=== PATIENT | male | born 1950 | race Caucasian/White ===

== ENCOUNTER → 2016-10-15 | Outpatient (CLI) | payer OTHER ==
--- NOTE | 2016-10-15 17:31 | US ---
Thyroid Ultrasound INDICATION: Thyroid nodule on recent physical exam. TECHNIQUE: Complete rodriguez-scale thyroid ultrasound is performed. No priors for comparison. CT scan of the chest September 18, 2015. FINDINGS The right thyroid gland measures 1.3 x 1.2 x 4.6 cm. There is a dominant superior or upper pole hypo echoic nodule of 9.4 x 10.5 x 12.1 mm, with increased vascularity compared to the rest of the thyroid gland. No calcifications. It is heterogeneous. The left thyroid gland measures 1.5 x 1.6 x 5.2 cm. It is otherwise basically homogeneous, with the exception of a small superior pole cyst at 2.6 x 2 x 2.1 mm. The cyst is avascular. The thyroid isthmus is normal at 5 mm. IMPRESSION: Single dominant complex/solid hypervascular nodule in the superior aspect of the right t hyroid gland, without calcifications. This is a nonspecific thyroid nodule. E:Diony/david
== END ==
LOC: FIMAGING 12:29
PROVIDERS: ATTEND Internal Medicine
DX: E04.1 Nontoxic single thyroid nodule (principal)

== ENCOUNTER 2017-12-11 09:30 | Inpatient (IN) | payer OTHER ==
[2017-12-11] MEDS ORDERED: VANCOMYCIN HCL/NORMAL SALINE 250 ML IV ONE (09:53)
--- NOTE | 2017-12-11 10:07 | EDPHY ---
H & P Stated Complaint: cellulitis l hand/had sliver 4th digit 2 weeks ago Time Seen by Provider: 12/11/17 09:43 HPI/ROS: CHIEF COMPLAINT: "I think my hand is infected" HISTORY OF PRESENT ILLNESS: 67-year-old [id number] male, history of atrial fibrillation, states that 2 weeks ago he had a splinter in his left 4th digit distal phalanx which he take that. He has noticed progressive erythema and soft tissue swelling to that left hand and, specifically the left 4th digit. He notes decreased range of motion to the left 4th digit. No fever no chills. No chest pain. No dyspnea. No flu-like symptoms. PRIMARY CARE PROVIDER: Dr. Shayne Fields REVIEW OF SYSTEMS: A ten point review of systems was performed and is negative with the exception of the items mentioned in the HPI PAST MEDICAL & SURGICAL HISTORY: Atrial fibrillation. Anticoagulation with Plavix and Xarelto. SOCIAL HISTORY: Nonsmoker PHYSICAL EXAM (Prior to examination, patient consented to physical exam, hands were washed and my usual and customary physical exam procedures followed) 1) GENERAL: Well-developed, well-nourished, alert and oriented. Appears to be in no acute distress. 2) HEAD: Normocephalic, atraumatic 3) HEENT: Pupils equal, round, reactive to light bilaterally. Sclera anicteric. 4) NECK: Full range of motion, no meningeal signs. 5) LUNGS: Clear auscultation bilaterally, no wheezes, no rhonchi, no retractions. 6) HEART: Regular rate and rhythm, no murmur, no heave, no gallop. 7) ABDOMEN: No guarding, no rebound, no focal tenderness 8) MUSCULOSKELETAL: Left upper extremity: Positive kanavel sign left 4th digit. Dorsal soft tissue swelling to the left hand. Lymphangitic streaking extending to the left axilla. 9) BACK: No visual or palpable abnormality. 10) SKIN: No rash, no petechiae. 11) Psychiatric: Patient is oriented X 3, there is no agitation. DIFFERENTIAL DIAGNOSIS: In no particular include but limited to infectious tenosynovitis, cellulitis, abscess. - Personal History Current Tetanus/Diphtheria Vaccine: Yes Tetanus Vaccine Date: 02/2012 - Medical/Surgical History Hx Asthma: No Hx Chronic Respiratory Disease: No Hx Diabetes: No Hx Cardiac Disease: Yes Hx Renal Disease: No Hx Cirrhosis: No Hx Alcoholism: No Hx HIV/AIDS: No Hx Splenectomy or Spleen Trauma: No Other PMH: HTN, A-fib, stent, cardioversion - Social History Smoking Status: Never smoked Constitutional: Initial Vital Signs Temperature (C) 37.5 C 12/11/17 09:34 Heart Rate 83 12/11/17 09:34 Respiratory Rate 18 12/11/17 09:34 Blood Pressure 149/74 H 12/11/17 09:34 O2 Sat (%) 95 12/11/17 09:34 O2 Delivery Mode Room Air Allergies/Adverse Reactions: Penicillins Allergy (Intermediate, Verified 12/11/17 09:33) hives/swelling Home Medications: Medication Instructions Recorded Enalapril Maleate [Vasotec 10 MG 5 mg PO BID 12/13/13 (*)] Melatonin [Melatonin 3 MG (*)] 3 mg PO HS 12/13/13 Multivitamins [Multivitamin (*)] 1 tab PO HS 12/13/13 Rivaroxaban [Xarelto] 20 mg PO DAILY@1800 12/13/13 Vitamin B Complex [B Complex] 1 each PO DAILY 12/13/13 Clopidogrel Bisulfate [Clopidogrel] 75 mg PO DAILY 07/09/14 Herbals/Supplements -Info Only 1 ea PO DAILY 07/09/14 Psyllium Husk (with Sugar) 1 each PO HS 07/09/14 [Metamucil Packet] Dofetilide [Tikosyn 0.25 MG (*)] 0.25 mg PO BID #0 cap 07/11/14 Atorvastatin Calcium [Lipitor 40 40 mg PO DAILY 12/11/17 mg (*)] Cholecalciferol Vit D3 [Vitamin D3 2,000 units PO HS 12/11/17 2000 units tab (OTC)] amLODIPine BESYLATE [Norvasc 5 mg 5 mg PO DAILY 12/11/17 (*)] Medical Decision Making - Diagnostics Imaging Results: Imaging Impressions Hand X-Ray 12/11/17 09:53 Impression: Soft tissue swelling in the dorsal aspect of the left hand without evidence for radiopaque foreign body or osseous erosion. Degenerative change, as above. Chest X-Ray 12/11/17 10:11 Impression: 1. Mild cardiomegaly. 2. Bochdalek hernia posterior left hemidiaphragm. Images myself ED Course/Re-evaluation: 10:01 a.m.: This patient will necessitate admission to the hospital consultation with Hand surgery. Patient has positive kanavel sign of the left 4th digit, lymphangitic streaking to his axilla on the affected side. Discussed the case with secondary supervising physician Dr. Salvatore Watts. On- call hand surgeon Dr. Wilfrid Kaufman has been contacted. 10:07 a.m.: Consultation with Dr. Wilfrid Kaufman who reviewed the patient's images that I texted to him (with no patient identifying information). He would like to take the patient to the operating room this afternoon. Patient remains NPO since lunch yesterday. He will remain NPO. Started on vancomycin. 10:08 a.m.: Dr. Salvatore Watts spoke with the hospitalist, admit to Dr. Curran. Patient does not meet initial sepsis screening criteria. - Data Points Laboratory Results: Laboratory Results 12/11/17 10:06 12/11/17 10:06 12/11/17 12/11/17 12/11/17 11:14 10:06 10:06 WBC 31.20 10^3/uL H 10^3/uL (3.80-9.50) RBC 4.94 10^6/uL 10^6/uL (4.40-6.38) Hgb 15.6 g/dL g/dL (13.7-17.5) Hct 45.6 % % (40.0-51.0) MCV 92.3 fL fL (81.5-99.8) MCH 31.6 pg pg (27.9-34.1) MCHC 34.2 g/dL g/dL (32.4-36.7) RDW 12.7 % % (11.5-15.2) Plt Count 240 10^3/uL 10^3/uL (150-400) MPV 9.4 fL fL (8.7-11.7) Neut % (Auto) Not Reported Lymph % (Auto) Not Reported [place] % (Auto) Not Reported Eos % (Auto) Not Reported Baso % (Auto) Not Reported Nucleat RBC Rel Count 0.0 % % (0.0-0.2) Absolute Neuts (auto) Not Reported Absolute Lymphs (auto) Not Reported Absolute Monos (auto) Not Reported Absolute Eos (auto) Not Reported Absolute Basos (auto) Not Reported Absolute Nucleated RBC 0.00 10^3/uL 10^3/uL (0-0.01) Immature Gran % Not Reported Seg Neutrophils % 66 % % Band Neutrophils % 23 % % Lymphocytes % 3 % % Monocytes % 2 % % Metamyelocytes % 7 % % Myelocytes % 1 % % Immature Gran # Not Reported Absolute Seg Neuts 20.59 10^/uL H 10^/uL (1.70-6.50) Absolute Band Neuts 7.18 10^3/uL H 10^3/uL (0.00-0.70) Absolute Lymphocytes 0.94 10^3/uL L 10^3/uL (1.00-3.00) Absolute Monocytes 0.62 10^3/uL 10^3/uL (0.30-0.80) Absolute Metamyelocyte 2.18 10^3/mL H 10^3/mL (0.00-0.00) Absolute Myelocytes 0.31 10^3/mL H 10^3/mL (0.00-0.00) Differential Comment Platelet Estimate ADEQUATE (ADEQ) Smear Review By Pending PT 19.1 SEC H SEC (12.0-15.0) INR 1.59 H (0.83-1.16) APTT 41.7 SEC H SEC (23.0-38.0) VBG Lactic Acid 1.9 mmol/L mmol/L (0.7-2.1) Sodium Potassium Chloride Carbon Dioxide Anion Gap BUN Creatinine Estimated GFR Glucose Calcium Total Bilirubin 12/11/17 12/11/17 10:06 10:06 WBC RBC Hgb Hct MCV MCH MCHC RDW Plt Count MPV Neut % (Auto) Lymph % (Auto) [place] % (Auto) Eos % (Auto) Baso % (Auto) Nucleat RBC Rel Count Absolute Neuts (auto) Absolute Lymphs (auto) Absolute Monos (auto) Absolute Eos (auto) Absolute Basos (auto) Absolute Nucleated RBC Immature Gran % Seg Neutrophils % Band Neutrophils % Lymphocytes % Monocytes % Metamyelocytes % Myelocytes % Immature Gran # Absolute Seg Neuts Absolute Band Neuts Absolute Lymphocytes Absolute Monocytes Absolute Metamyelocyte Absolute Myelocytes Differential Comment Platelet Estimate Smear Review By PT INR APTT VBG Lactic Acid 2.6 mmol/L H mmol/L (0.7-2.1) Sodium 137 mEq/L mEq/L (135-145) Potassium 4.8 mEq/L mEq/L (3.5-5.2) Chloride 100 mEq/L mEq/L (97-110) Carbon Dioxide 22 mEq/l mEq/l (22-31) Anion Gap 15 mEq/L mEq/L (8-16) BUN 25 mg/dL H mg/dL (7-23) Creatinine 1.2 mg/dL mg/dL (0.7-1.3) Estimated GFR > 60 Glucose 141 mg/dL H mg/dL (70-100) Calcium 8.6 mg/dL mg/dL (8.5-10.4) Total Bilirubin 1.5 mg/dL H mg/dL (0.1-1.4) Medications Given: Discontinued Medications Bacitracin (Bacitracin Syringe) Confirm Administered Dose 50,000 units IRR .STK- MED ONE Stop: 12/11/17 10:56 Last Admin: 12/11/17 12:36 Dose: 50,000 units Bupivacaine HCl (Sensorcaine 0.25% Sdv) Confirm Administered Dose 30 ml .ROUTE .STK-MED ONE Stop: 12/11/17 10:55 Last Admin: 12/11/17 12:37 Dose: 30 ml Bupivacaine HCl/Epinephrine Bitart (Bupivacaine/Epi) Confirm Administered Dose 30 ml .ROUTE .STK-MED ONE Stop: 12/11/17 10:52 Last Admin: 12/11/17 12:40 Dose: Not Given Vancomycin/Sodium Chloride (Vancomycin 1 Gm (Premix)) 250 mls @ 250 mls/hr IV EDNOW ONE PRN Reason: Protocol Stop: 12/11/17 10:52 Last Admin: 12/11/17 10:40 Dose: Not Given Sodium Chloride (Ns) 1,000 mls @ 0 mls/hr IV ONCE ONE PRN Reason: Wide Open Stop: 12/11/17 10:20 Last Admin: 12/11/17 10:24 Dose: 1,000 mls Vancomycin HCl 1 gm/ Sodium (Chloride) 250 mls @ 250 mls/hr IV ONCE ONE Stop: 12/11/17 11:29 Last Admin: 12/11/17 10:41 Dose: 250 mls Sodium Chloride (Ns) 1,000 mls @ 0 mls/hr IV ONCE ONE PRN Reason: Wide Open Stop: 12/11/17 11:04 Last Admin: 12/11/17 11:05 Dose: 1,000 mls Midazolam HCl (Versed) 2 mg IVP ONCALL ONE Stop: 12/11/17 11:54 Last Admin: 12/11/17 12:08 Dose: 2 mg Departure - Departure Disposition: [facility] Acute Clinical Impression: Infectious tenosynovitis left hand Condition: Fair
[2017-12-11 10:15] LABS: PLATELET COUNT 240 10^3/uL (150-400)
[2017-12-11] MEDS ORDERED: NS 1,000 ML IV ONE ×2 (10:19→11:03)
--- NOTE | 2017-12-11 10:21 | CPEKG ---
Heart Rate: 80 RR Interval: 750 P-R Interval: 172 QRSD Interval: 94 QT Interval: 340 QTC Interval: 393 P Byron: 20 QRS Byron: -32 T Wave Byron: 15 EKG Severity - ABNORMAL ECG - EKG Impression: SINUS RHYTHM EKG Impression: PROBABLE INFERIOR INFARCT, AGE INDETERMINATE Electronically Signed By: Salvatore Watts 11-Dec-2017 12:17:24
[2017-12-11 10:30] LABS: INR 1.59 (0.83-1.16); PROTIME(PATIENT) 19.1 SEC (12.0-15.0)
[2017-12-11] MEDS ORDERED: VANCOMYCIN 1 GM in NS 250 ML IV ONE (10:30)
[2017-12-11] MEDS ORDERED: BUPIVACAINE/EPI 0.5% 30 ML SDV ONE (10:51)
[2017-12-11] MEDS ORDERED: BUPIVACAINE 0.25% 30 ML SDV ONE (10:54)
[2017-12-11] MEDS ORDERED: BACITRACIN 50,000 UNITS/10 ML SYR IRR ONE (10:55)
[2017-12-11] MEDS ORDERED: ONDANSETRON DISINTEGRATING 4 MG TAB PO PRN (11:21)
[2017-12-11] MEDS ORDERED: ALBUTEROL 3 ML DEYVIAL IH PRN (11:21)
[2017-12-11] MEDS ORDERED: ONDANSETRON 4 MG/2 ML VIAL IVP PRN ×2 (11:21→12:59)
[2017-12-11] MEDS ORDERED: oxyCODONE IR 5 MG TAB PO PRN (11:21)
[2017-12-11] MEDS ORDERED: NS 1,000 ML IV SCH (11:30)
--- NOTE | 2017-12-11 11:31 | PDGENHP ---
History and Physical - Chief Complaint left hand swelling - History of Present Illness 67 yo male p/w left hand swelling and redness. 2 weeks ago he got a splinter to his 4th distal phalanx. Over the past couple of days he has noticed erythema and swelling of finger. Yesterday night it became worse. He had chills and may have had a fever. He went to sleep. This morning the erythema and swelling had extended to all his left hand. He has a hx of Afib, chronic AC, CAD, and possible CHF. He is on Plavix and Xarelto. He is not on a rate limiting agent. He reports that his legs swell often and that he takes Lasix, but this is not on his medication list. Leading up to this event he had been in his usual health. He denies CP, SOB, N/V/D. In the E.D., hand surgery was consulted. He had an elevated lactic acid. BP is normal. HR is not tachycardia. WBC is elevated. He is not noted to have a fever in the E.D. He was started on IVF and started on Vancomycin. He is NPO. PMHx: Afib, CAD, chronic Anticoagulation for Afib, HTN, HLD PSHx: Cardioversion, Left testicle surgery, Hernia repair Soc: , no t/e/i fmHx: Cardiovascular disease, HTN History Information - Allergies/Home Medication List Allergies/Adverse Reactions: Penicillins Allergy (Intermediate, Verified 12/11/17 09:33) hives/swelling Home Medications: Enalapril Maleate [Vasotec 10 MG (*)] 5 mg PO BID 12/13/13 [Last Taken 07/09/14] Melatonin [Melatonin 3 MG (*)] 3 mg PO HS 12/13/13 [Last Taken 07/08/14] Multivitamins [Multivitamin (*)] 1 tab PO HS 12/13/13 [Last Taken 07/08/14] Rivaroxaban [Xarelto] 20 mg PO DAILY@1800 12/13/13 [Last Taken 12/10/17] Vitamin B Complex [B Complex] 1 each PO DAILY 12/13/13 [Last Taken 12/13/13] Clopidogrel Bisulfate [Clopidogrel] 75 mg PO DAILY 07/09/14 [Last Taken 12/10/17 ] Herbals/Supplements -Info Only 1 ea PO DAILY 07/09/14 [Last Taken Unknown] Psyllium Husk (with Sugar) [Metamucil Packet] 1 each PO HS 07/09/14 [Last Taken 07/08/14] Atorvastatin Calcium [Lipitor 40 mg (*)] 40 mg PO DAILY 12/11/17 [Last Taken ] Cholecalciferol Vit D3 [Vitamin D3 2000 units tab (OTC)] 2,000 units PO HS 12/11 [Last Taken Unknown] amLODIPine BESYLATE [Norvasc 5 mg (*)] 5 mg PO DAILY 12/11/17 [Last Taken ] I have personally reviewed and updated: medical history, social history - Social History Smoking Status: Never smoked Review of Systems Review of Systems: ROS: 10pt was reviewed & negative except for what was stated in HPI & below Physical Exam Physical Exam: Temp Pulse Resp BP Pulse Ox 37.5 C 87 18 141/84 H 95 12/11/17 09:34 12/11/17 11:22 12/11/17 11:22 12/11/17 11:22 12/11/17 11:22 Constitutional: no apparent distress Eyes: PERRL, EOMI Ears, Nose, Mouth, Throat: moist mucous membranes Cardiovascular: regular rate and rhythym, edema (trace), No JVD Respiratory: no respiratory distress, no rales or rhonchi, clear to auscultation Gastrointestinal: normoactive bowel sounds, soft, non-tender abdomen Genitourinary: no bladder fullness Skin: warm Musculoskeletal: other (Left hand with erythema, swelling, limited ROM.) Neurologic: AAOx3 Psychiatric: interacting appropriately, not anxious, not encephalopathic, thought process linear Lymph, Heme, Immunologic: No petechiae Lab Data & Imaging Review 12/11/17 10:06 12/11/17 10:06 WBC 31.20 10^3/uL (3.80-9.50) H 12/11/17 10:06 RBC 4.94 10^6/uL (4.40-6.38) 12/11/17 10:06 Hgb 15.6 g/dL (13.7-17.5) 12/11/17 10:06 Hct 45.6 % (40.0-51.0) 12/11/17 10:06 MCV 92.3 fL (81.5-99.8) 12/11/17 10:06 MCH 31.6 pg (27.9-34.1) 12/11/17 10:06 MCHC 34.2 g/dL (32.4-36.7) 12/11/17 10:06 RDW 12.7 % (11.5-15.2) 12/11/17 10:06 Plt Count 240 10^3/uL (150-400) 12/11/17 10:06 MPV 9.4 fL (8.7-11.7) 12/11/17 10:06 Neut % (Auto) Not Reported 12/11/17 10:06 Lymph % (Auto) Not Reported 12/11/17 10:06 [place] % (Auto) Not Reported 12/11/17 10:06 Eos % (Auto) Not Reported 12/11/17 10:06 Baso % (Auto) Not Reported 12/11/17 10:06 Nucleat RBC Rel Count 0.0 % (0.0-0.2) 12/11/17 10:06 Absolute Neuts (auto) Not Reported 12/11/17 10:06 Absolute Lymphs (auto) Not Reported 12/11/17 10:06 Absolute Monos (auto) Not Reported 12/11/17 10:06 Absolute Eos (auto) Not Reported 12/11/17 10:06 Absolute Basos (auto) Not Reported 12/11/17 10:06 Absolute Nucleated RBC 0.00 10^3/uL (0-0.01) 12/11/17 10:06 Immature Gran % Not Reported 12/11/17 10:06 Seg Neutrophils % 66 % 12/11/17 10:06 Band Neutrophils % 23 % 12/11/17 10:06 Lymphocytes % 3 % 12/11/17 10:06 Monocytes % 2 % 12/11/17 10:06 Metamyelocytes % 7 % 12/11/17 10:06 Myelocytes % 1 % 12/11/17 10:06 Immature Gran # Not Reported 12/11/17 10:06 Absolute Seg Neuts 20.59 10^/uL (1.70-6.50) H 12/11/17 10:06 Absolute Band Neuts 7.18 10^3/uL (0.00-0.70) H 12/11/17 10:06 Absolute Lymphocytes 0.94 10^3/uL (1.00-3.00) L 12/11/17 10:06 Absolute Monocytes 0.62 10^3/uL (0.30-0.80) 12/11/17 10:06 Absolute Metamyelocyte 2.18 10^3/mL (0.00-0.00) H 12/11/17 10:06 Absolute Myelocytes 0.31 10^3/mL (0.00-0.00) H 12/11/17 10:06 Differential Comment 12/11/17 10:06 Platelet Estimate ADEQUATE (ADEQ) 12/11/17 10:06 PT 19.1 SEC (12.0-15.0) H 12/11/17 10:06 INR 1.59 (0.83-1.16) H 12/11/17 10:06 APTT 41.7 SEC (23.0-38.0) H 12/11/17 10:06 VBG Lactic Acid 2.6 mmol/L (0.7-2.1) H 12/11/17 10:06 Sodium 137 mEq/L (135-145) 12/11/17 10:06 Potassium 4.8 mEq/L (3.5-5.2) 12/11/17 10:06 Chloride 100 mEq/L (97-110) 12/11/17 10:06 Carbon Dioxide 22 mEq/l (22-31) 12/11/17 10:06 Anion Gap 15 mEq/L (8-16) 12/11/17 10:06 BUN 25 mg/dL (7-23) H 12/11/17 10:06 Creatinine 1.2 mg/dL (0.7-1.3) 12/11/17 10:06 Estimated GFR > 60 12/11/17 10:06 Glucose 141 mg/dL (70-100) H 12/11/17 10:06 Calcium 8.6 mg/dL (8.5-10.4) 12/11/17 10:06 Total Bilirubin 1.5 mg/dL (0.1-1.4) H 12/11/17 10:06 Assessment & Plan Assessment: #Left Hand Tenosynovitis and Cellulitis #Possible Sepsis given reported chills/malaise, Leukocytosis, source of infection, elevated serum lactate. Normal BP, HR, and RR noted #Afib, chronic, on Tikasyn #chronic AC #CAD, hx of stents #possible CHF, the pt denies hx of CHF, but he says he takes Lasix for pedal edema Plan: -OR today -Cont Vancomycin -Cont IVF that were started in the E.D. I will not continue typical sepsis IVF protocol given signs of pedal edema, hx of AFib, and BP is stable, and no tachycardia (he is not on rate limiting agent). He is receiving a 1 L bolus in the ED. After surgery he should continue NS at 75 per hour. -Hold Plavix and Xarelto -Hold antihypertensives -restart other appropriate home meds -monitor fluid status closely. total critical care time managing this patient with possible sepsis and left hand tenosynovitis and cellulitis is 65 minutes
[2017-12-11] MEDS ORDERED: fentaNYL 100 MCG/2 ML INJ ONE ×2 (11:43→12:31)
[2017-12-11] MEDS ORDERED: PROPOFOL 200 MG/20 ML VIAL ONE (11:43)
[2017-12-11] MEDS ORDERED: LIDOCAINE 2% 100 MG/5 ML SYR ONE (11:44)
--- NOTE | 2017-12-11 11:52 | PDANEPAE ---
ANE History of Present Illness infected L Hand--I+D ANE Past Medical History - Cardiovascular History Hx Hypertension: Yes Hx Arrhythmias: Yes Hx Coronary Artery / Peripheral Vascular Disease: Yes Cardiovascular History Comment: AFib. CAD, stents x3 2014 - Pulmonary History Hx Oxygen in Use at Home: No Hx Sleep Apnea: No - Endocrine History Hx Diabetes: No - Chronic Pain History Chronic Pain: No ANE Review of Systems Review of Systems: - Exercise capacity Exercise capacity: >=4 METS ANE Patient History - Allergies Allergies/Adverse Reactions: Penicillins Allergy (Intermediate, Verified 12/11/17 09:33) hives/swelling - Home Medications Home Medications: Enalapril Maleate [Vasotec 10 MG (*)] 5 mg PO BID 12/13/13 [Last Taken 07/09/14] Melatonin [Melatonin 3 MG (*)] 3 mg PO HS 12/13/13 [Last Taken 07/08/14] Multivitamins [Multivitamin (*)] 1 tab PO HS 12/13/13 [Last Taken 07/08/14] Rivaroxaban [Xarelto] 20 mg PO DAILY@1800 12/13/13 [Last Taken 12/10/17] Vitamin B Complex [B Complex] 1 each PO DAILY 12/13/13 [Last Taken 12/13/13] Clopidogrel Bisulfate [Clopidogrel] 75 mg PO DAILY 07/09/14 [Last Taken 12/10/17 ] Herbals/Supplements -Info Only 1 ea PO DAILY 07/09/14 [Last Taken Unknown] Psyllium Husk (with Sugar) [Metamucil Packet] 1 each PO HS 07/09/14 [Last Taken 07/08/14] Atorvastatin Calcium [Lipitor 40 mg (*)] 40 mg PO DAILY 12/11/17 [Last Taken ] Cholecalciferol Vit D3 [Vitamin D3 2000 units tab (OTC)] 2,000 units PO HS 12/11 [Last Taken Unknown] amLODIPine BESYLATE [Norvasc 5 mg (*)] 5 mg PO DAILY 12/11/17 [Last Taken ] - NPO status NPO Status: no food or drink >8 hours NPO Since - Liquids (Date): 12/11/17 NPO Since - Liquids (Time): 08:00 NPO Since - Solids (Date): 12/10/17 NPO Since - Solids (Time): 12:00 - Anes Hx Anes Hx: no prior problems - Smoking Hx Smoking Status: Never smoked - Alcohol Use Alcohol Use: Occasionally - Family Anes Hx Family Anes Hx: none ANE Labs/Vital Signs - Labs Result Diagrams: 12/11/17 10:06 12/11/17 10:06 - Vital Signs Blood Pressure: 143/68 Heart Rate: 100 Respiratory Rate: 18 O2 Sat (%): 93 Height: 180.34 cm Weight: 90.718 kg ANE Physical Exam - Airway Neck exam: FROM Mallampati Score: Class 2 Mouth exam: poor dentition - Pulmonary Pulmonary: no respiratory distress - Cardiovascular Cardiovascular: regular rate and rhythym - ASA Status ASA Status: III ANE Anesthesia Plan Anesthesia Plan: GA w LMA
[2017-12-11] MEDS ORDERED: MIDAZOLAM 2 MG/2 ML VIAL IVP ONE (11:53)
[2017-12-11] MEDS ORDERED: MIDAZOLAM 2 MG/2 ML VIAL ONE (11:54)
[2017-12-11] MEDS ORDERED: ONDANSETRON 4 MG/2 ML VIAL ONE (12:43)
[2017-12-11] MEDS ORDERED: DEXAMETHASONE 4 MG/ML VIAL ONE (12:43)
--- NOTE | 2017-12-11 12:50 | PDMN ---
Medical Necessity Medical necessity: C/M review: Patient [place] [facility] [place] Cellulitis: Acute and persistent left hand tenosynovitis and cellulitis, left hand with worsening erythema, swelling limited ROM, possible sepsis, leukocytosis, WBC 31.20 (patient not on steroids), VBG lactic acid 2.6, 1.9 requiring 12/11/2017 urgent surgery - left hand incision and drainage, ongoing IV NS 75 ml/hr. infusion, IV Vancomycin, comorbid patient got splinter to his 4th distal phalanx 2 weeks ago with increasing erythema and swelling of finger over 2 prior days, 12/11/2017 AM swelling had extended to all of his left hand, history of atrial fibrillation on chronic anticoagulation, CAD, hypertension, hyperlipidemia. MD anticipates > 2 MN LOS for ongoing med nec for eval and TX of above.
[2017-12-11] MEDS ORDERED: LR 500 ML IV PRN (12:59)
[2017-12-11] MEDS ORDERED: fentaNYL 100 MCG/2 ML INJ IVP PRN (12:59)
[2017-12-11] MEDS ORDERED: HYDROmorphONE/DILAUDID 1 MG/ML INJ IVP PRN (12:59)
[2017-12-11] MEDS ORDERED: NALOXONE HCL 0.4 MG/ML INJ IVP PRN (12:59)
--- NOTE | 2017-12-11 13:01 | POSTANESTH ---
Post Anesthetic Evaluation Cardiovascular Status: Normal, Stable, Similar to Pre-Op Cond Respiratory Status: Normal, Stable, Similar to Pre-op Cond. Level of Consciousness/Mental Status: Can Participate in Eval, Mildly Sleepy, Arousable Pain Control: Adequate, Prn Tx Ordered Nausea/Vomiting Control: Adequate, Prn Tx Ordered Complications Possibly Related to Anesthesia: None Noted
--- NOTE | 2017-12-11 13:27 | GOP ---
[f rep st] OPERATIVE REPORT DATE OF OPERATION: 12/11/2017 SURGEON: Wilfrid Kaufman MD NURSES ASSISTANT: None. ANESTHESIA: General. PREOPERATIVE DIAGNOSIS: Abscess, left ring finger, with infectious flexor tenosynovitis. POSTOPERATIVE DIAGNOSIS: Abscess, left ring finger, with infectious flexor tenosynovitis. PROCEDURE PERFORMED: Irrigation and debridement of abscess of left hand flexor tenosynovitis. FINDINGS: Purulent drainage SPECIMENS: Culture swab x1. ESTIMATED BLOOD LOSS: At finish of the procedure: 5 cc. INDICATIONS: The patient has a left hand abscess with flexor tenosynovitis that has been festering for a few weeks. He is septic with ascending lymphangitis, and I have discussed with him the risks, benefits, and alternatives of operative intervention, including but not limited to infection, neurovascular injury, residual pain and stiffness, loss of the finger, scarring of the finger necessitating extensive therapy or future surgical interventions. He will also need IV antibiotics for a few days. He understands and wishes to proceed, and proper informed consent was obtained and placed in the chart. DESCRIPTION OF PROCEDURE: The patient was taken to the operating room after being properly identified in the preoperative area and the operative extremity marked. A time-out was performed and he was laid supine on the operating table. General anesthesia was initiated. The left upper extremity was prepped and draped in sterile fashion. The limb was elevated but not exsanguinated, and tourniquet inflated to 250 mmHg. I made a Rafael incision along the length of the finger from the pulp distally, proximally through the area of the A1 niurka, and into the palm. There was extensive purulent material in this region , which was evacuated and thoroughly irrigated. The pus also communicated along his lumbrical canals and into his dorsal spaces, and this was evacuated, and then I thoroughly irrigated with several liters of sterile normal saline and antibiotic impregnated with bacitracin. I was quite satisfied. I did mechanical debridement of the nonviable tissue, and interrupted sutures were placed in the majority of the incision. I left a central portion of the incision open in the palm and placed a Jaswant drain in this area. A bulky soft dressing was placed. The tourniquet was taken down at 24 minutes, and the patient awakened and taken to recovery having tolerated the procedure well without any apparent complication. All sponge and needle counts were correct at the finish of the operation. PLAN: IV antibiotics and then pull the drain tomorrow or the next day. The patient will follow up in the office in approximately a week. /[id number]/MODL MTDD
--- NOTE | 2017-12-11 13:43 | GCON ---
[f rep st] CONSULTATION CHIEF COMPLAINT: Left hand abscess and pain. 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 Emergency room ph ysician called me and the patient had extensive evidence of flexor tenosynovitis and the hand abscess . He was tachycardic and perhaps bacteremic and had ascending lymphangitis with an elevated white bl ood cell count of 31,000. He asked me to see the patient for definitive evaluation and management. PAST MEDICAL HISTORY: Includes coronary artery disease, atrial fibrillation, chronic anticoagulation for atrial fib, hypertension, hyperlipidemia. PAST SURGICAL HISTORY: Includes cardioversion, left testicle surgery, hernia repair. SOCIAL HISTORY: He is . Does not drink, smoke or do other street drugs. FAMILY HISTORY: Includes cardiovascular disease and hypertension. ALLERGIES: Include penicillin, which caused hives and swelling. HOME MEDICATIONS: Include Vasotec, melatonin, multivitamin, Xarelto, B-complex, clopidogrel, metamucil, Lipitor, Norvas c, vitamin D3. REVIEW OF SYSTEMS: The patient is febrile, he is mildly tachycardic. He has complaints of pain in h is left hand, and he has felt some malaise, nausea, with decreased appetite. All other symptoms nega tive. PHYSICAL EXAMINATION: VITAL SIGNS: Temperature 37.5, pulse 85, respirations 18, blood pressure 141/ 84, pulse ox 95% on room air. GENERAL: He is alert, oriented and appropriate. EXTREMITIES: His le ft upper extremity shows a dusky looking left ring finger digit with diffuse sausage like swelling, p ositive Kanavel sign, ascending swelling back into the hand, diffuse swelling of the hand, streaking lymphangitis of the hand. There is a small scabbed over wound at the distal tip of the finger, and t he patient has limited movement of the finger. He has strong distal pulses. The remainder of his fi ngers are warm and pink, but again the refill on the ring finger is somewhat sluggish. The patient h as some swollen lymphadenopathy in his axilla, and he otherwise has intact sensation throughout. LABORATORY VALUES: White blood cell count 31.20 is the pertinent laboratory value. ASSESSMENT: Tenosynovitis and abscess left hand, with ascending lymphangitis and cellulitis, with po ssible sepsis. We have consented him for emergent irrigation and debridement in the operating room a s soon as possible this morning and he will be on IV antibiotics, likely will be in the hospital for a few days, and appropriate follow up medical team is the primary admitting team for management of IV antibiotics. We will get cultures intraoperatively. /[id number]/MODL
[2017-12-11] MEDS: RIVAROXABAN 20 MG TAB PO SCH (17:31)
[2017-12-11] MEDS: MELATONIN 3 MG TAB PO SCH (20:05)
[2017-12-11] MEDS: MULTIVITAMINS 1 EACH TAB PO SCH (20:05)
[2017-12-11] MEDS: DOFETILIDE 0.25 MG CAP PO SCH (20:05)
[2017-12-11] MEDS: CHOLECALCIFEROL VIT D3 2,000 UNITS TAB/CAP PO SCH (20:05)
[2017-12-11] MEDS: ENALAPRIL MALEATE 10 MG TAB PO SCH (20:05)
[2017-12-11] MEDS: PSYLLIUM METAMUCIL 1 PKT PO SCH (20:46)
[2017-12-11] MEDS: VANCOMYCIN 1 GM in NS 250 ML IV SCH (22:01)
[2017-12-12 04:55] LABS: PLATELET COUNT 185 10^3/uL (150-400)
[2017-12-12] MEDS ORDERED: Herbals/Supplements -Info Only PO SCH (09:00)
[2017-12-12] MEDS: VITAMIN B COMPLEX 1 EA CAP/TAB PO SCH (09:13)
[2017-12-12] MEDS: DOFETILIDE 0.25 MG CAP PO SCH ×2 (09:13→20:22)
[2017-12-12] MEDS: ENALAPRIL MALEATE 10 MG TAB PO SCH ×2 (09:13→20:24)
[2017-12-12] MEDS: CLOPIDOGREL BISULFATE 75 MG TAB PO SCH (09:14)
[2017-12-12] MEDS: amLODIPine BESYLATE 5 MG TAB PO SCH (09:14)
[2017-12-12] MEDS: ATORVASTATIN CALCIUM 40 MG TAB PO SCH (09:14)
[2017-12-12] MEDS: VANCOMYCIN 1 GM in NS 250 ML IV SCH ×2 (11:32→23:16)
--- NOTE | 2017-12-12 11:44 | ASMTCASEMG ---
Living Arrangements What is your living Answers: With Spouse arrangement? Who do you live with? Type Of Residence What kind of residence do Answers: House you live in? Discharge Plan Comments Coordination Status Comments Notes: Patient is a 67yo male who was admitted for left hand Tenosynovitis, cellulitis, and possible sepsis. OT and wound care have been ordered. Patient required emergent irrigation and debridement in the operating room and he will be on IV abx. Cultures will be obtained intraoperatively. Patient's Elizabeth has been at bedside. 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 He lives with his in a house independently. D/C plan TBD. CM will follow. Date Signed: 12/12/2017 11:44 AM Electronically Signed By:Hortencia Rausch LCSW
[2017-12-12] MEDS: ACETAMINOPHEN 325 MG TAB PO PRN ×2 (12:57→20:22)
--- NOTE | 2017-12-12 17:05 | SOAPPROG ---
SOAP Progress Note Assessment/Plan: Assessment: Septic Tenosynovits of hand Condition much improved Plan: Drain Removed, Continue antibiotics per primary team. No further surgery planned. Dressing changed. Will see in follow up after discharge from hospital this week. 12/12/17 17:02 Subjective: Pain improved Objective: Vital Signs Temp Pulse Resp BP Pulse Ox 37.3 C 73 14 90/52 L 91 L 12/12/17 15:22 12/12/17 15:22 12/12/17 15:22 12/12/17 15:22 12/12/17 15:22 Microbiology 12/11/17 12:26 Gram Stain - Final Hand - Swab Laboratory Results 12/12/17 04:17 12/12/17 04:17 12/11/17 12/12/17 12/13/17 05:59 05:59 05:59 Intake Total 4625 Output Total 1285 Balance 3340 PT 19.1 SEC (12.0-15.0) H 12/11/17 10:06 INR 1.59 (0.83-1.16) H 12/11/17 10:06 dd Decreased swelling and erythema, dressing changed with significant drainage on dressing, decreased lymphangitic streaking and erythema proximally in the arm, minor decrease in sensation ofingertip, fingertip appears well vascularized. ICD10 Worksheet Patient Problems: Problems Problem Status Onset Atrial fibrillation Acute CAD (coronary artery disease) Acute
[2017-12-12] MEDS: RIVAROXABAN 20 MG TAB PO SCH (17:25)
--- NOTE | 2017-12-12 18:59 | HOSPPROG ---
Hospitalist Progress Note Assessment/Plan: Assessment: 67-year-old male presents with sepsis secondary to tenosynovitis and abscess mediated by group a strep Plan: 1. Sepsis. Evidenced by autonomic dysregulation in the setting of infection with clinical indicators including fever, tachycardia, tachypnea, severe leukocytosis, end-organ failure including lactic acidosis, with clear source of infection notably tenosynovitis and abscess, meeting all ICDS criteria -status post IV fluids and empiric antibiotics -continue monitor fever curve, most recently was 4:00 p.m. Yesterday, continue to monitor severe leukocytosis with daily CBC 2. Flexor tenosynovitis and abscess. Located along the left 4th digit, postop day 1 status post washout by Dr. Kaufman -mediated by group a strep on wound culture -local wound care to be provided by the hand surgery service, please notify us if hospital wound care services would be appreciated -has responded well to IV vancomycin, given patient's penicillin allergy, will continue on vancomycin tonight and then reassess allergy and appropriate antibiotic adjustments tomorrow -infectious Disease consultation appreciated -will continue to monitor speciation and sensitivity from wound culture and blood cultures 3. Permanent atrial fibrillation. Currently on Tikosyn, systemic anticoagulation, continue monitor on telemetry for acute rapid ventricular response 4. Coronary artery disease. Chronic, history of cardiac stents, continue home medications and restarted Plavix 5. Chronic diastolic congestive heart failure. No evidence of acute exacerbation, continue diuretics tomorrow depending on hemodynamics 6. Acute metabolic acidosis. Secondary to lactic acid in the setting of sepsis , cleared with treatment of sepsis Diet. Cardiac Prophylaxis. High risk patient, currently on Xarelto Code. Full Disposition. Anticipated discharge uncertain this time, requiring ongoing IV antibiotics as well as local wound care. Subjective: Minimal pain in left hand, some paresthesias Objective: Vital Signs Temp Pulse Resp BP Pulse Ox 37.3 C 73 14 90/52 L 91 L 12/12/17 15:22 12/12/17 15:22 12/12/17 15:22 12/12/17 15:22 12/12/17 15:22 Microbiology 12/11/17 12:26 Gram Stain - Final Hand - Swab Laboratory Results 12/12/17 04:17 12/12/17 04:17 12/11/17 12/12/17 12/13/17 05:59 05:59 05:59 Intake Total 4625 610 Output Total 1285 Balance 3340 610 PT 19.1 SEC (12.0-15.0) H 12/11/17 10:06 INR 1.59 (0.83-1.16) H 12/11/17 10:06 - Physical Exam Constitutional: no apparent distress, appears nourished, not in pain, uncomfortable Cardiovascular: irregularly irregular, No systolic murmur, No tachycardia, No edema Respiratory: no respiratory distress, no rales or rhonchi, clear to auscultation Gastrointestinal: normoactive bowel sounds, soft, non-tender abdomen, no palpable masses, No distension Musculoskeletal: other (Movement in left upper extremity digits) Neurologic: AAOx3, sensation intact bilaterally, No weakness (Full range of motion left thumb) Psychiatric: interacting appropriately, not anxious, not encephalopathic, thought process linear Lymph, Heme, Immunologic: No lymphangitic streaking (Left upper extremity) ICD10 Worksheet Patient Problems: Problems Problem Status Onset CAD (coronary artery disease) Acute Atrial fibrillation Acute
[2017-12-12] MEDS: CHOLECALCIFEROL VIT D3 2,000 UNITS TAB/CAP PO SCH (20:22)
[2017-12-12] MEDS: MULTIVITAMINS 1 EACH TAB PO SCH (20:22)
[2017-12-12] MEDS: PSYLLIUM METAMUCIL 1 PKT PO SCH (20:22)
[2017-12-12] MEDS: MELATONIN 3 MG TAB PO SCH (20:22)
[2017-12-13 05:14] LABS: PLATELET COUNT 219 10^3/uL (150-400)
[2017-12-13] MEDS: ENALAPRIL MALEATE 10 MG TAB PO SCH ×2 (09:41→20:59)
[2017-12-13] MEDS: CLOPIDOGREL BISULFATE 75 MG TAB PO SCH (09:42)
[2017-12-13] MEDS: amLODIPine BESYLATE 5 MG TAB PO SCH (09:42)
[2017-12-13] MEDS: VITAMIN B COMPLEX 1 EA CAP/TAB PO SCH (09:42)
[2017-12-13] MEDS: ATORVASTATIN CALCIUM 40 MG TAB PO SCH (09:42)
[2017-12-13] MEDS: DOFETILIDE 0.25 MG CAP PO SCH ×2 (09:43→20:58)
[2017-12-13] MEDS: ACETAMINOPHEN 325 MG TAB PO PRN ×3 (09:48→20:59)
[2017-12-13] MEDS: VANCOMYCIN 1 GM in NS 250 ML IV SCH ×2 (11:26→22:07)
--- NOTE | 2017-12-13 12:27 | ASMTCMCOM ---
CM Note CM Note Notes: OT previously ordered; PT ordered as well; awaiting evals. Pt currently on IV abx; ID to consult. CM will continue to follow. Date Signed: 12/13/2017 12:25 PM Electronically Signed By:Anh Womack RN
--- NOTE | 2017-12-13 15:00 | GCON ---
[f rep st] CONSULTATION INFECTIOUS DISEASE CONSULTATION DATE OF CONSULTATION: 12/13/2017 REFERRING PHYSICIAN: Brannon Beltrán MD REASON FOR CONSULTATION: Left hand infectious tenosynovitis with abscess and cellulitis. CHIEF COMPLAINT: Swelling, redness and pain of left hand and 4th digit. HISTORY OF PRESENT ILLNESS: This is a 67-year-old male with a past medical history signifi cant for atrial fibrillation, hypertension, pencil injury to the right eye as a child who was admitte d on the due to increasing swelling, redness and pain of his left 4th digit and hand. He states that about 2 weeks ago he had a splinter to the 4th digit when he was lifting up some plywood. He t ried to remove it and he thought he removed all of it, but after a few days he started to notice that there was some pus coming out of the finger. He tried to squeeze the pus out and see if there was a ny residual splinter, but could not find any. He continued to try to keep the hand clean, but over past weekend, he started noticing increasing fevers and chills, and redness and swelling involving the hand. He came into the ED for further evaluation. In the ED, an x-ray was done, which showed no residual foreign body, but diffuse swelling of the hand. He was seen by Dr. Kaufman of hand surgery w ho took him to the OR and upon review of the operative note, purulent material was extensive. Purule nt material was seen in the region of the incision. The incision goes from the left 4th digit into h is palm. The area was irrigated and nonviable tissue was debrided. Cultures were taken at the time which showed group A strep. He was placed on vancomycin therapy and remains on that at present. He continues to have swelling of his left hand, forearm, and into his arm. The pain has started to come down. He has had some residual numbness and tingling and especially involving the left 4th digit. White blood cell count was 31,000 on admission, and has come down slightly to 24,000 with ongoing ban demia. Blood cultures x2 sets on admission so far no growth. Infectious Disease is now consulted fo r further evaluation and opinion. REVIEW OF SYSTEMS: GENERAL: Had fevers and shaking chills. HEAD: No headaches. EYES: No change in vi malathi. ENT: No sore throat, difficulty swallowing, ear pain or ear drainage. CARDIOVASCULAR: No chest pain or rapid heartbeat. RESPIRATORY: No shortness of breath, cough, or sputum production. ABDOMEN: N o nausea, vomiting, abdominal pain, or diarrhea. GENITOURINARY: No dysuria. MUSCULOSKELETAL: Pertin ent complaints are left hand pain and swelling. No other joints or muscle areas are involved. SKIN: As above. Rest of a 10-point review of systems essentially negative. PAST MEDICAL HISTORY: Significant for atrial fibrillation, hypertension, pencil injury to the right eye with subsequent loss of vision. PAST SURGICAL HISTORY: Significant for hernia surgery. ALLERGIES: Penicillin, which he states he developed rash and facial and throat swelling when he was 9 years of age. He has never been challenged again with penicillin and to his knowledge, he has neve r been given a cephalosporin. SOCIAL HISTORY: He is a nonsmoker. Drinks alcohol socially. Lives with his . He has no pets. Has not left [place] recently. FAMILY HISTORY: Significant for coronary artery disease and hypertension. PHYSICAL EXAMINATION: VITAL SIGNS: Temperature current 37.2, pulse is 66, blood pressure 112/71, sa turations are 97% on room air, respiratory rate is 18. GENERAL: Patient is sitting up in the chair in no acute respiratory distress. Awake, alert, and oriented x3 HEENT. Head is normocephalic, atrau matic. Eyes without conjunctival injection or petechiae. Oropharynx is clear. There is no posterio r oropharyngeal erythema or thrush. CARDIOVASCULAR: S1, S2. Regular rate and rhythm. No murmurs a ppreciated. RESPIRATORY: Clear to auscultate bilaterally. No rhonchi or rales appreciated. ABDOMEN: Positive bowel sounds in all quadrants. Soft, nontender, nondistended. EXTREMITIES: Pertinent find ings with swelling of the left hand, forearm and arm. Surgical site left 4th digit with sutures runn ing from the mid digit into the palm. There is maceration in the middle part of the digit noted. Th ere is some ecchymosis and erythema on the palmar aspect with tenderness appreciated. Slight numbnes s and tingling on the 4th digit compared to other digits. Peripheral pulses are well appreciated. S kin is slightly warm to touch. LABORATORY: White blood cell count is 24.2, hemoglobin 12.8, platelets are 219, neutrophil count is 70%, bands are 22%. Sodium 141, potassium 4.3, chloride 111, bicarb is 24, BUN is 25, creatinine is 1.0. Vancomycin trough 12.9. Blood cultures x2 sets, no growth to date. Hand blood cultures with g roup A strep, 4+. ASSESSMENT: 1. Left 4th digit/hand infectious tenosynovitis with cellulitis and abscess, status post incision an d drainage. 2. Penicillin allergy with hives and facial and throat swelling. PLAN: At present, the patient remains on vancomycin. Trough is at 12.9, which is adequate at this ti me. Given his penicillin allergy, it is difficult to try to challenge him with possibly a cephalospo rin. Will change him over to daptomycin for ease of outpatient administration of antibiotics. He wi ll likely need 4 weeks of therapy. Will check a CPK and LFTs at baseline prior to dosing and continu e to follow them while he is on therapy. Continue to monitor clinically left hand over the next coup le of days to assess whether or not he needs additional washout. I appreciate Dr. Kaufman's evaluation and assist in care in this patient. Will plan to place a PICC line in the morning. Care was evens rodriguez with his RN as well as Dr. Beltrán today. Thank you very much for providing this opportunity to care for your patient in consultation. /[id number]/MODL
--- NOTE | 2017-12-13 18:43 | HOSPPROG ---
Hospitalist Progress Note Assessment/Plan: Assessment: 67-year-old male presents with sepsis secondary to tenosynovitis and abscess mediated by group a strep Plan: 1. Sepsis. Evidenced by autonomic dysregulation in the setting of infection with clinical indicators including fever, tachycardia, tachypnea, severe leukocytosis, end-organ failure including lactic acidosis, with clear source of infection notably tenosynovitis and abscess, meeting all ICDS criteria -resolved 2. Flexor tenosynovitis and abscess. Located along the left 4th digit, postop day 2 status post washout by Dr. Kaufman -mediated by group a strep on wound culture -local wound care to be provided by the hand surgery service, please notify us if hospital wound care services would be appreciated -has responded well to IV vancomycin, will continue -d/w Dr. Petty, she recommends dapto via PICC as outpt for likely 4 week course -WBC remains significantly elevated w/ ongoing swelling, ongoing reassess to ensure that focal infxn not retained, monitor WBC 3. Permanent atrial fibrillation. Currently on Tikosyn, systemic anticoagulation, continue monitor on telemetry for acute rapid ventricular response 4. Coronary artery disease. Chronic, history of cardiac stents, continue home medications and restarted Plavix 5. Chronic diastolic congestive heart failure. No evidence of acute exacerbation, continue diuretics tomorrow depending on hemodynamics 6. Acute metabolic acidosis. Secondary to lactic acid in the setting of sepsis , cleared with treatment of sepsis Diet. Cardiac Prophylaxis. High risk patient, currently on Xarelto Code. Full Disposition. Anticipated discharge uncertain this time, requiring ongoing IV antibiotics as well as local wound care. Subjective: reports ongoing swelling in L hand, using tylenol for pain Objective: Vital Signs Temp Pulse Resp BP Pulse Ox 36.8 C 79 18 118/67 95 12/13/17 15:09 12/13/17 15:09 12/13/17 15:09 12/13/17 15:09 12/13/17 15:09 Microbiology 12/11/17 12:26 Gram Stain - Final Hand - Swab Laboratory Results 12/13/17 04:20 12/13/17 04:20 12/12/17 12/13/17 12/14/17 05:59 05:59 05:59 Intake Total 4625 860 450 Output Total 1285 Balance 3340 860 450 PT 19.1 SEC (12.0-15.0) H 12/11/17 10:06 INR 1.59 (0.83-1.16) H 12/11/17 10:06 - Physical Exam Constitutional: no apparent distress, appears nourished, not in pain, No uncomfortable Cardiovascular: regular rate and rhythym, no murmur, rub, or gallop, No irregularly irregular, No edema Respiratory: no respiratory distress, no rales or rhonchi, clear to auscultation Gastrointestinal: normoactive bowel sounds, soft, non-tender abdomen, no palpable masses, No distension Skin: other (mild erythema extending down L forearm) Musculoskeletal: other (full ROM L wrist) Neurologic: AAOx3, No sensation intact bilaterally (paresthesias L 4th digit distally), No weakness (motor 5/5 fingers L hand) Psychiatric: interacting appropriately, not anxious, not encephalopathic, thought process linear ICD10 Worksheet Patient Problems: Problems Problem Status Onset CAD (coronary artery disease) Acute Atrial fibrillation Acute
[2017-12-13] MEDS: RIVAROXABAN 20 MG TAB PO SCH (18:54)
[2017-12-13] MEDS: MELATONIN 3 MG TAB PO SCH (20:58)
[2017-12-13] MEDS: CHOLECALCIFEROL VIT D3 2,000 UNITS TAB/CAP PO SCH (20:58)
[2017-12-13] MEDS: MULTIVITAMINS 1 EACH TAB PO SCH (20:59)
[2017-12-13] MEDS: PSYLLIUM METAMUCIL 1 PKT PO SCH (21:16)
[2017-12-14 05:33] LABS: PLATELET COUNT 259 10^3/uL (150-400)
[2017-12-14 05:59] LABS: CREATINE KINASE 104 IU/L (0-224)
[2017-12-14] MEDS: ACETAMINOPHEN 325 MG TAB PO PRN ×3 (09:14→20:57)
[2017-12-14] MEDS: ENALAPRIL MALEATE 10 MG TAB PO SCH ×2 (09:15→20:54)
[2017-12-14] MEDS: DOFETILIDE 0.25 MG CAP PO SCH ×2 (09:15→20:54)
[2017-12-14] MEDS: VITAMIN B COMPLEX 1 EA CAP/TAB PO SCH (09:16)
[2017-12-14] MEDS: amLODIPine BESYLATE 5 MG TAB PO SCH (09:16)
[2017-12-14] MEDS: ATORVASTATIN CALCIUM 40 MG TAB PO SCH (09:17)
[2017-12-14] MEDS: CLOPIDOGREL BISULFATE 75 MG TAB PO SCH (09:17)
[2017-12-14] MEDS ORDERED: ALTEPLASE 2 MG VIAL IVP PRN (09:40)
[2017-12-14] MEDS: VANCOMYCIN 1 GM in NS 250 ML IV SCH ×3 (14:11→17:32)
--- NOTE | 2017-12-14 14:11 | PCMIDPN ---
Assessment/Plan: Assessment: Left 4th finger and hand soft tissue necrotizing infection secondary to group a Streptococcus. Patient is on vancomycin secondary to concerning penicillin allergy from his youth. The appearance of the left finger and hand is improved over yesterday. Decreased redness and swelling. Plan to continue the vancomycin and observe over time. Plan: 1. Follow surgical recommendations. 2. Follow appearance of left hand. 3. Continue IV vancomycin at present. Subjective: Patient is sitting up in his bed in the hospital room. He denies any fevers or chills overnight. States that he feels much better than admission. Notes that the left arm and hand as well as his finger are decreased in size. Decreased pain in the area as well. Objective: Vancomycin # 3 Vital Signs Temp Pulse Resp BP Pulse Ox 36.9 C 59 L 16 131/83 H 93 12/14/17 07:35 12/14/17 07:35 12/14/17 07:35 12/14/17 09:16 12/14/17 07:35 Microbiology 12/11/17 12:26 Gram Stain - Final Hand - Swab Laboratory Results 12/14/17 04:26 12/14/17 04:26 12/13/17 12/14/17 12/15/17 05:59 05:59 05:59 Intake Total 860 450 Balance 860 450 C-Reactive Protein 74.5 mg/L (<10.0) H 12/14/17 04:26 - Physical Exam General Appearance: WD/WN, alert, no apparent distress, non-toxic Respiratory: lungs clear, normal breath sounds, No respiratory distress Cardiac/Chest: regular rate, rhythm, No tachycardia Extremities: swelling, necrosis (Mild), erythema, No non-tender, No normal inspection, No inflammation Skin: normal color, warm/dry, No rash Neuro/Psych: alert, normal mood/affect, oriented x 3 ICD10 Worksheet Patient Problems: Problems Problem Status Onset Atrial fibrillation Acute CAD (coronary artery disease) Acute
--- NOTE | 2017-12-14 15:09 | PDRADPN ---
Radiology Procedure Note Date of Procedure: 12/14/17 Radiologist: Everett Hoyos Anesthesia: Local (Specify) Pre-op Diagnosis: infection Post-op Diagnosis: same Indication: venous access Procedure: RUE PICC Finding(s): tip of catheter at cavoatrial junction Inf/Abcess present in the surg proc area at time of surgery?: No EBL: Minimal Complications: none
[2017-12-14] MEDS: RIVAROXABAN 20 MG TAB PO SCH (17:35)
--- NOTE | 2017-12-14 17:40 | HOSPPROG ---
Hospitalist Progress Note Assessment/Plan: Assessment: 67-year-old male presents with sepsis secondary to tenosynovitis and abscess mediated by group a strep Plan: 1. Sepsis. Evidenced by autonomic dysregulation in the setting of infection with clinical indicators including fever, tachycardia, tachypnea, severe leukocytosis, end-organ failure including lactic acidosis, with clear source of infection notably tenosynovitis and abscess, meeting all ICDS criteria -resolved 2. Flexor tenosynovitis and abscess. Located along the left 4th digit, postop day 3 status post washout by Dr. Kaufman -mediated by group a strep on wound culture -d/w hand surg, OK to undress wound to eval and then have it redressed w/ sterile gauze prior to discharging home -evaluated concomitantly w/ Dr. Macario, we both agreed that the hand should be reassessed again in 24hrs to ensure that the edema along the volar surface is improving and that WBC continues to downtrend prior to discharging -PICC line placed, receiving Vanco today, plan for Dapto as outpt via infusion ctr -if area continues to improve tomorrow, plan to discharge and patient to follow- up in hand clinic on Tuesday (counseled patient and that he simply needs to keep his discharge dressing in place and hand surg will undress/redress on Tuesday in clinic, so they do not need supplies at discharge) 3. Permanent atrial fibrillation. Currently on Tikosyn, systemic anticoagulation, continue monitor on telemetry for acute rapid ventricular response 4. Coronary artery disease. Chronic, history of cardiac stents, continue home medications and restarted Plavix 5. Chronic diastolic congestive heart failure. No evidence of acute exacerbation, continue diuretics 6. Acute metabolic acidosis. Secondary to lactic acid in the setting of sepsis , cleared with treatment of sepsis Diet. Cardiac Prophylaxis. High risk patient, currently on Xarelto Code. Full Disposition. Anticipated discharge 12/15, pending improvement of wound edema. Subjective: patient reports pain responding to tylenol, has had BM Objective: Vital Signs Temp Pulse Resp BP Pulse Ox 37.2 C 62 18 131/84 H 95 12/14/17 15:23 12/14/17 15:23 12/14/17 15:23 12/14/17 15:23 12/14/17 15:23 Microbiology 12/11/17 12:26 Gram Stain - Final Hand - Swab Laboratory Results 12/14/17 04:26 12/14/17 04:26 12/13/17 12/14/17 12/15/17 05:59 05:59 05:59 Intake Total 860 450 Balance 860 450 PT 19.1 SEC (12.0-15.0) H 12/11/17 10:06 INR 1.59 (0.83-1.16) H 12/11/17 10:06 - Time Spent With Patient Time Spent with Patient: greater than 25 minutes Time Spent with Patient: Greater than 25 minutes spent on this patients care, greater than 50% of time spent counseling, educating, and coordinating care regarding the above mentioned plan. - Pending Discharge Pending Discharge Within 24 Hours: Yes Pending Discharge Date: 12/15/17 Pending Discharge Time: 11:00 - Physical Exam Constitutional: no apparent distress, not in pain, No uncomfortable Eyes: other (R eye anomally ) Skin: other (macerated bilat aspects of L 4th digit w/ active bleeding, volar surface edema and puckered wound w/ purplish discoloration, mild tenderness and blanching edema distal L forearm) Musculoskeletal: other (full ROM L wrist w/o pain) Neurologic: AAOx3, No sensation intact bilaterally (paresthesias distal L 4th digit) Psychiatric: interacting appropriately, not anxious, not encephalopathic, thought process linear ICD10 Worksheet Patient Problems: Problems Problem Status Onset CAD (coronary artery disease) Acute Atrial fibrillation Acute
[2017-12-14] MEDS: MULTIVITAMINS 1 EACH TAB PO SCH (20:54)
[2017-12-14] MEDS: CHOLECALCIFEROL VIT D3 2,000 UNITS TAB/CAP PO SCH (20:54)
[2017-12-14] MEDS: MELATONIN 3 MG TAB PO SCH (20:54)
[2017-12-14] MEDS: PSYLLIUM METAMUCIL 1 PKT PO SCH (20:58)
[2017-12-15] MEDS: VANCOMYCIN 1 GM in NS 250 ML IV SCH ×2 (02:06→14:38)
[2017-12-15 03:35] LABS: PLATELET COUNT 285 10^3/uL (150-400)
[2017-12-15] MEDS: ACETAMINOPHEN 325 MG TAB PO PRN ×3 (09:26→21:31)
[2017-12-15] MEDS: amLODIPine BESYLATE 5 MG TAB PO SCH (09:28)
[2017-12-15] MEDS: ATORVASTATIN CALCIUM 40 MG TAB PO SCH (09:28)
[2017-12-15] MEDS: CLOPIDOGREL BISULFATE 75 MG TAB PO SCH (09:28)
[2017-12-15] MEDS: DOFETILIDE 0.25 MG CAP PO SCH ×2 (09:28→21:31)
[2017-12-15] MEDS: VITAMIN B COMPLEX 1 EA CAP/TAB PO SCH (09:29)
[2017-12-15] MEDS: ENALAPRIL MALEATE 10 MG TAB PO SCH ×2 (09:29→21:31)
--- NOTE | 2017-12-15 14:21 | ASMTCMCOM ---
CM Note CM Note Notes: Spoke w/RN, pt will stay one more night and likely dc home on oral abx. CM available for any changes. DC Plan: Independent Date Signed: 12/15/2017 02:20 PM Electronically Signed By:Sandra Mariee RN
--- NOTE | 2017-12-15 14:23 | HOSPPROG ---
Hospitalist Progress Note Assessment/Plan: 67-year-old male presents with sepsis secondary to tenosynovitis and abscess mediated by group a strep # Sepsis-(fever, tachycardia, tachypnea, severe leukocytosis) source is tenosynovitis and abscess Oxygen saturations 95% on room air -resolved # Flexor tenosynovitis and abscess- Located along the left 4th digit, POD #4 status post washout by Dr. [facility] a strep on wound culture- wound visualized today with Dr. Macario much improved -PICC line placed - cont Vancomycin today - will re-examine with ID tomorrow with ID and determine dc abx # Permanent atrial fibrillation-Currently on Tikosyn and systemic anticoagulation - continue home meds # Coronary artery disease. Chronic, history of cardiac stents, continue home medications and restarted Plavix # Chronic diastolic congestive heart failure. No evidence of acute exacerbation , continue diuretics # Acute metabolic acidosis. Secondary to lactic acid in the setting of sepsis, cleared with treatment of sepsis Diet. Cardiac Prophylaxis. High risk patient, currently on Xarelto Code. Full Disposition. Anticipated discharge 12/16, pending improvement of wound edema. I have discussed the case with Dr. Salvatore Macario-we will examine the wound tomorrow make decisions related to disposition and antibiotic Subjective: hAnd feeling much better Objective: Vital Signs Temp Pulse Resp BP Pulse Ox 37.0 C 60 18 108/72 95 12/15/17 07:39 12/15/17 07:39 12/15/17 07:39 12/15/17 09:28 12/15/17 07:39 Microbiology 12/11/17 12:26 Gram Stain - Final Hand - Swab Laboratory Results 12/15/17 03:30 12/15/17 03:30 12/14/17 12/15/17 12/16/17 05:59 05:59 05:59 Intake Total 450 550 Balance 450 550 PT 19.1 SEC (12.0-15.0) H 12/11/17 10:06 INR 1.59 (0.83-1.16) H 12/11/17 10:06 - Physical Exam Constitutional: appears nourished Eyes: anicteric sclera Ears, Nose, Mouth, Throat: moist mucous membranes Cardiovascular: irregularly irregular Respiratory: no respiratory distress, no rales or rhonchi Gastrointestinal: normoactive bowel sounds Genitourinary: no bladder fullness Skin: erythema, other (swelling and discoloration of hand improved) Musculoskeletal: No asymmetric calves Neurologic: AAOx3 Psychiatric: interacting appropriately Lymph, Heme, Immunologic: no cervical LAD ICD10 Worksheet Patient Problems: Problems Problem Status Onset Atrial fibrillation Acute CAD (coronary artery disease) Acute
--- NOTE | 2017-12-15 14:34 | PCMIDPN ---
Assessment/Plan: Assessment: Left 4th finger and hand soft tissue necrotizing infection secondary to group a Streptococcus. Patient is on vancomycin secondary to concerning penicillin allergy from his youth. The clinical exam of his hand and finger is significantly improved over the last 24 hours. Decreased redness and swelling. Plan to continue the vancomycin and observe further. Hopefully can chart changer to oral antibiotics for discharge. Plan: 1. Follow surgical recommendations. 2. Follow appearance of left hand. 3. Continue IV vancomycin at present. 12/15/17 14:32 Subjective: Patient states that the left hand is feeling less painful. He has no fevers or chills. Overall doing well. Objective: Vancomycin # 4 Vital Signs Temp Pulse Resp BP Pulse Ox 37.0 C 60 18 108/72 95 12/15/17 07:39 12/15/17 07:39 12/15/17 07:39 12/15/17 09:28 12/15/17 07:39 Microbiology 12/11/17 12:26 Gram Stain - Final Hand - Swab Laboratory Results 12/15/17 03:30 12/15/17 03:30 12/14/17 12/15/17 12/16/17 05:59 05:59 05:59 Intake Total 450 550 Balance 450 550 C-Reactive Protein 74.5 mg/L (<10.0) H 12/14/17 04:26 - Physical Exam General Appearance: WD/WN, alert, no apparent distress, non-toxic Respiratory: lungs clear, normal breath sounds, No respiratory distress Cardiac/Chest: regular rate, rhythm, No tachycardia Extremities: non-tender, inflammation (Mild and improving left hand inflammation ), swelling (Improved in the left upper extremity), No normal inspection, No erythema ICD10 Worksheet Patient Problems: Problems Problem Status Onset Atrial fibrillation Acute CAD (coronary artery disease) Acute
[2017-12-15] MEDS: RIVAROXABAN 20 MG TAB PO SCH (18:35)
[2017-12-15] MEDS: MELATONIN 3 MG TAB PO SCH (21:31)
[2017-12-15] MEDS: MULTIVITAMINS 1 EACH TAB PO SCH (21:31)
[2017-12-15] MEDS: CHOLECALCIFEROL VIT D3 2,000 UNITS TAB/CAP PO SCH (21:31)
[2017-12-15] MEDS: PSYLLIUM METAMUCIL 1 PKT PO SCH (21:33)
[2017-12-16] MEDS: VANCOMYCIN 1 GM in NS 250 ML IV SCH ×2 (02:23→15:30)
[2017-12-16] MEDS: ENALAPRIL MALEATE 10 MG TAB PO SCH ×2 (08:01→21:00)
[2017-12-16] MEDS: CLOPIDOGREL BISULFATE 75 MG TAB PO SCH (08:01)
[2017-12-16] MEDS: ATORVASTATIN CALCIUM 40 MG TAB PO SCH (08:01)
[2017-12-16] MEDS: VITAMIN B COMPLEX 1 EA CAP/TAB PO SCH (08:02)
[2017-12-16] MEDS: amLODIPine BESYLATE 5 MG TAB PO SCH (08:02)
[2017-12-16] MEDS: ACETAMINOPHEN 325 MG TAB PO PRN ×2 (08:02→13:22)
[2017-12-16] MEDS: DOFETILIDE 0.25 MG CAP PO SCH ×2 (08:02→21:00)
--- NOTE | 2017-12-16 11:37 | PCMIDPN ---
Assessment/Plan: # GAS L hand cellulitis, lymphangitis of forearm, 4th finger tenosynovitis s/p debridement, significant swelling and erythema remains but minimal signs of tenosynovitis. No signs of compartment syndrome. --check vanco T --hopeful to change to ceftriaxone 2 g IV daily. --patient is out of the window where clindamycin could help with the [place] affect/toxin binding # PCN allergy childhood. --will try test dose short acting cephalosporin under observation and see if we can transition to ceftriaxone 2gm IV daily Medication Vancomycin 12/11, # 5 12/11 blood cultures (2) no growth today 12/11 cultures from the OR : group a strep, sensitivities pending Subjective: hand much less painful he really has minimal c/o no diarrhea no rash Objective: Vital Signs Temp Pulse Resp BP Pulse Ox 36.8 C 96 18 165/95 H 93 12/16/17 07:53 12/16/17 07:53 12/16/17 07:53 12/16/17 08:02 12/16/17 07:53 Microbiology 12/11/17 12:26 Gram Stain - Final Hand - Swab Laboratory Results 12/16/17 04:40 12/15/17 03:30 12/15/17 12/16/17 12/17/17 05:59 05:59 05:59 Intake Total 550 550 Balance 550 550 C-Reactive Protein 74.5 mg/L (<10.0) H 12/14/17 04:26 - Physical Exam General Appearance: alert, no apparent distress Respiratory: No accessory muscle use Extremities: swelling (L hand and to lesser extent wrist), erythema (over entire L hand most prominent on dorsum, thumb), other (radial pulse intact) Skin: No rash Neuro/Psych: alert, normal mood/affect, oriented x 3 - Time Spent With Patient Time Spent with Patient: greater than 35 minutes (patient examined with DR. Espinoza and Kye, RN) Time Spent with Patient: Greater than 35 minutes spent on this patients care, greater than 50% of time spent counseling, educating, and coordinating care regarding the above mentioned plan. ICD10 Worksheet Patient Problems: Problems Problem Status Onset Atrial fibrillation Acute CAD (coronary artery disease) Acute
[2017-12-16] MEDS ORDERED: ceFAZolin 0.5 GM in NS 50 ML IV ONE (12:00)
--- NOTE | 2017-12-16 12:39 | HOSPPROG ---
Hospitalist Progress Note Assessment/Plan: 67-year-old male presents with sepsis secondary to tenosynovitis and abscess mediated by group a strep # Flexor tenosynovitis and abscess- Located along the left 4th digit, POD #5 status post washout by Dr. [facility] a strep on wound culture- wound visualized today with Dr. Soto - does not appear significantly improved - will trial dose ancef today (PCN allergy in childhood) - cont Vancomycin - no dc today - re-eval in am # Sepsis-(fever, tachycardia, tachypnea, severe leukocytosis) source is tenosynovitis and abscess Oxygen saturations 95% on room air -resolved # Permanent atrial fibrillation-Currently on Tikosyn and systemic anticoagulation - continue home meds # Coronary artery disease. Chronic, history of cardiac stents, continue home medications and restarted Plavix # Chronic diastolic congestive heart failure. No evidence of acute exacerbation , continue diuretics # Acute metabolic acidosis. Secondary to lactic acid in the setting of sepsis, cleared with treatment of sepsis Diet. Cardiac Prophylaxis. High risk patient, currently on Xarelto Code. Full Disposition> 2MN - continues to require close monitoring and IV abx I have discussed the case with Dr. Soto- no significant improvement overnight will trial the patient with Ancef today as better agent for his strep pathogen Subjective: Feeling discouraged Objective: Vital Signs Temp Pulse Resp BP Pulse Ox 36.8 C 96 18 165/95 H 93 12/16/17 07:53 12/16/17 07:53 12/16/17 07:53 12/16/17 08:02 12/16/17 07:53 Microbiology 12/11/17 12:26 Gram Stain - Final Hand - Swab Laboratory Results 12/16/17 04:40 12/15/17 03:30 12/15/17 12/16/17 12/17/17 05:59 05:59 05:59 Intake Total 550 550 Balance 550 550 PT 19.1 SEC (12.0-15.0) H 12/11/17 10:06 INR 1.59 (0.83-1.16) H 12/11/17 10:06 - Physical Exam Constitutional: no apparent distress Eyes: anicteric sclera Ears, Nose, Mouth, Throat: moist mucous membranes Cardiovascular: regular rate and rhythym Respiratory: no respiratory distress Gastrointestinal: normoactive bowel sounds Genitourinary: no bladder fullness Skin: warm, other (Persistent swelling and erythema of the hand) Musculoskeletal: full muscle strength Neurologic: AAOx3 Psychiatric: interacting appropriately Lymph, Heme, Immunologic: no cervical LAD ICD10 Worksheet Patient Problems: Problems Problem Status Onset Atrial fibrillation Acute CAD (coronary artery disease) Acute
[2017-12-16] MEDS: cefTRIAXone 2 GM in STERILE WATER INJ 20 ML IV SCH (15:33)
[2017-12-16] MEDS: RIVAROXABAN 20 MG TAB PO SCH (17:10)
[2017-12-16] MEDS: MULTIVITAMINS 1 EACH TAB PO SCH (20:59)
[2017-12-16] MEDS: CHOLECALCIFEROL VIT D3 2,000 UNITS TAB/CAP PO SCH (20:59)
[2017-12-16] MEDS: MELATONIN 3 MG TAB PO SCH (20:59)
[2017-12-16] MEDS: PSYLLIUM METAMUCIL 1 PKT PO SCH (21:01)
[2017-12-17] MEDS: VITAMIN B COMPLEX 1 EA CAP/TAB PO SCH (09:09)
[2017-12-17] MEDS: DOFETILIDE 0.25 MG CAP PO SCH ×2 (09:09→22:15)
[2017-12-17] MEDS: ATORVASTATIN CALCIUM 40 MG TAB PO SCH (09:09)
[2017-12-17] MEDS: ENALAPRIL MALEATE 10 MG TAB PO SCH ×2 (09:10→22:15)
[2017-12-17] MEDS: CLOPIDOGREL BISULFATE 75 MG TAB PO SCH (09:11)
[2017-12-17] MEDS: amLODIPine BESYLATE 5 MG TAB PO SCH (09:11)
[2017-12-17] MEDS: cefTRIAXone 2 GM in STERILE WATER INJ 20 ML IV SCH (09:13)
[2017-12-17] MEDS: ACETAMINOPHEN 325 MG TAB PO PRN ×3 (11:21→22:19)
--- NOTE | 2017-12-17 13:08 | PCMIDPN ---
Assessment/Plan: # GAS L hand cellulitis, lymphangitis of forearm, 4th finger tenosynovitis s/p debridement, improved today - erythema on dorsum more purplish in color today, less swelling in hand particularly less wrist and thumb swelling. WBC continues to trend down. AF --tolerating ceftriaxone 2 g IV daily. --continue elevation and inpatient monitoring another day due to severity of infection and need for close monitoring --consider total IV abx for 2 weeks in light of tenosynovitis. # PCN allergy childhood: tolerating cephalosporins so far Medication Abx #6 ceftriaxone 2gm IV daily #2 s/p 5 d Vancomycin 12/11 blood cultures (2) no growth today 12/11 cultures from the OR : group a strep, adkins-S Subjective: minimal pain transient nausea during initial infusion ceftriaxone but no itching, SOB, urticaria Objective: Vital Signs Temp Pulse Resp BP Pulse Ox 37.1 C 97 14 123/78 H 95 12/17/17 07:38 12/17/17 07:38 12/17/17 07:38 12/17/17 07:38 12/17/17 07:38 Microbiology 12/11/17 12:26 Gram Stain - Final Hand - Swab Laboratory Results 12/17/17 04:35 12/15/17 03:30 12/16/17 12/17/17 12/18/17 05:59 05:59 05:59 Intake Total 550 300 Balance 550 300 C-Reactive Protein 74.5 mg/L (<10.0) H 12/14/17 04:26 - Physical Exam General Appearance: alert, no apparent distress Respiratory: No accessory muscle use Extremities: swelling (generalized swelling L hand improved today w increased wrinkling of skin), erythema (LEFT purplish erythema dorsum of hand, improved compared to yesterday), other (incision on 4th finger left ok, sloughing of skin at base of finger with underlying open wound, adjacent macerated skin, suprisingly good flexon ) Skin: No rash Neuro/Psych: alert, normal mood/affect, oriented x 3 - Time Spent With Patient Time Spent with Patient: greater than 35 minutes (Care coordinated and patient examined with Dr Steward and care coordinated with nursing. Dressing change by me) Time Spent with Patient: Greater than 35 minutes spent on this patients care, greater than 50% of time spent counseling, educating, and coordinating care regarding the above mentioned plan. ICD10 Worksheet Patient Problems: Problems Problem Status Onset Atrial fibrillation Acute CAD (coronary artery disease) Acute
--- NOTE | 2017-12-17 14:15 | HOSPPROG ---
Hospitalist Progress Note Assessment/Plan: 67-year-old male presents with sepsis secondary to tenosynovitis and abscess mediated by group a strep # Flexor tenosynovitis and abscess- Located along the left 4th digit, POD # 6 status post washout by Dr. [facility] a strep on wound culture- wound visualized today with Dr. Soto - does appear improved- less erythema and swelling - tolerated ancef overnight- cont ceftriaxone - Dr. Soto changed wound dressing to limit unroofing raw tissue with changes - cont inpat care # Sepsis-(fever, tachycardia, tachypnea, severe leukocytosis) source is tenosynovitis and abscess Oxygen saturations 95% on room air -resolved # Permanent atrial fibrillation-Currently on Tikosyn and systemic anticoagulation - continue home meds # Coronary artery disease. Chronic, history of cardiac stents, continue home medications and restarted Plavix # Chronic diastolic congestive heart failure. No evidence of acute exacerbation , continue diuretics # Acute metabolic acidosis. Secondary to lactic acid in the setting of sepsis, cleared with treatment of sepsis Diet. Cardiac Prophylaxis. High risk patient, currently on Xarelto Code. Full Disposition> 2MN - continues to require close monitoring and IV abx I have discussed the case with Dr. Soto- does appear improved overnight on cephalosporin- will continue Subjective: tolerating po- minimal pain Objective: Vital Signs Temp Pulse Resp BP Pulse Ox 37.1 C 97 14 123/78 H 95 12/17/17 07:38 12/17/17 07:38 12/17/17 07:38 12/17/17 07:38 12/17/17 07:38 Microbiology 12/11/17 12:26 Gram Stain - Final Hand - Swab Laboratory Results 12/17/17 04:35 12/15/17 03:30 12/16/17 12/17/17 12/18/17 05:59 05:59 05:59 Intake Total 550 300 Balance 550 300 PT 19.1 SEC (12.0-15.0) H 12/11/17 10:06 INR 1.59 (0.83-1.16) H 12/11/17 10:06 - Physical Exam Constitutional: no apparent distress Eyes: anicteric sclera Ears, Nose, Mouth, Throat: moist mucous membranes Cardiovascular: regular rate and rhythym Respiratory: no respiratory distress Gastrointestinal: normoactive bowel sounds Genitourinary: no bladder fullness Skin: other (hand wound remains swollen - improved) Musculoskeletal: No asymmetric calves Neurologic: AAOx3 Psychiatric: interacting appropriately Lymph, Heme, Immunologic: no cervical LAD ICD10 Worksheet Patient Problems: Problems Problem Status Onset Atrial fibrillation Acute CAD (coronary artery disease) Acute
[2017-12-17] MEDS: RIVAROXABAN 20 MG TAB PO SCH (17:36)
[2017-12-17] MEDS: PSYLLIUM METAMUCIL 1 PKT PO SCH (22:14)
[2017-12-17] MEDS: MULTIVITAMINS 1 EACH TAB PO SCH (22:14)
[2017-12-17] MEDS: MELATONIN 3 MG TAB PO SCH (22:15)
[2017-12-17] MEDS: CHOLECALCIFEROL VIT D3 2,000 UNITS TAB/CAP PO SCH (22:16)
[2017-12-18] MEDS: DOFETILIDE 0.25 MG CAP PO SCH ×2 (09:23→22:11)
[2017-12-18] MEDS: ATORVASTATIN CALCIUM 40 MG TAB PO SCH (09:24)
[2017-12-18] MEDS: CLOPIDOGREL BISULFATE 75 MG TAB PO SCH (09:24)
[2017-12-18] MEDS: amLODIPine BESYLATE 5 MG TAB PO SCH (09:24)
[2017-12-18] MEDS: VITAMIN B COMPLEX 1 EA CAP/TAB PO SCH (09:24)
[2017-12-18] MEDS: ENALAPRIL MALEATE 10 MG TAB PO SCH ×2 (09:26→22:10)
[2017-12-18] MEDS: cefTRIAXone 2 GM in STERILE WATER INJ 20 ML IV SCH (09:27)
--- NOTE | 2017-12-18 10:13 | PDIAF ---
- Diagnosis Diagnosis: LUCY L hand tenosynovitis Code Status: Full Code - Medication Management Discharge Medications: Medications to Continue on Transfer Enalapril Maleate [Vasotec 10 MG (*)] 5 mg PO BID 12/13/13 [Last Taken 07/09/14] Melatonin [Melatonin 3 MG (*)] 3 mg PO HS 12/13/13 [Last Taken 07/08/14] Multivitamins [Multivitamin (*)] 1 tab PO HS 12/13/13 [Last Taken 07/08/14] Rivaroxaban [Xarelto] 20 mg PO DAILY@1800 12/13/13 [Last Taken 12/10/17] Vitamin B Complex [B Complex] 1 each PO DAILY 12/13/13 [Last Taken 12/13/13] Clopidogrel Bisulfate [Clopidogrel] 75 mg PO DAILY 07/09/14 [Last Taken 12/10/17 ] Herbals/Supplements -Info Only 1 ea PO DAILY 07/09/14 [Last Taken Unknown] Psyllium Husk (with Sugar) [Metamucil Packet] 1 each PO HS 07/09/14 [Last Taken 07/08/14] Dofetilide [Tikosyn 0.25 MG (*)] 0.25 mg PO BID #0 cap 07/11/14 [Last Taken ] Atorvastatin Calcium [Lipitor 40 mg (*)] 40 mg PO DAILY 12/11/17 [Last Taken ] Cholecalciferol Vit D3 [Vitamin D3 2000 units tab (OTC)] 2,000 units PO HS 12/11 [Last Taken Unknown] amLODIPine BESYLATE [Norvasc 5 mg (*)] 5 mg PO DAILY 12/11/17 [Last Taken ] Cutting Pressman Antibiotics: ceftriaxone 2gm IV daily Shelter Antibiotic Stop Date: 12/30/17 Discharge Medications: Refer to the Discharge Home Medication list for PRN reason. PICC Care - Routine: Yes - Orders Services needed: Home Care, Registered Nurse Home Care Face to Face: I certify that this patient was under my care and that I had the required [id number] encounter meeting the encounter requirements on the discharge day. My findings support the fact that the patient is homebound as defined in Home Care Face to Face Continued: CMS Chapter 7 Medicare Benefits Manual 30.1.1 , The condition of the patient is such that there exists a normal inability to leave home and consequently, leaving home would require a considerable and taxing effort. Additional: wound healing skin care therapist - Labs/Radiology CBC w/diff Date: 12/20/17 (weekly Tuesday) CMP Date: 12/20/17 (weekly Tuesday) CRP Date: 12/20/17 (weekly Tuesday) - Follow Up Care Current Providers and Referrals: Shayne Fields MD [Primary Care Provider] - As per Instructions Kayce Soto MD [Medical Doctor] - 12/23/17 10:30 am
--- NOTE | 2017-12-18 10:19 | PCMIDPN ---
Assessment/Plan: # GAS L hand cellulitis, lymphangitis of forearm, 4th finger tenosynovitis s/p debridement, improved today - erythema on dorsum more purplish in color today, less swelling in hand particularly less wrist and thumb swelling. WBC continues to trend down. AF --tolerating ceftriaxone 2 g IV daily. --dc on IV antibiotics in the next day, interagency completed, discussed w case management --continue elevation --wound healing consult # PCN allergy childhood: tolerating cephalosporins so far Medication Abx #7 ceftriaxone 2gm IV daily #3 s/p 5 d Vancomycin micro 12/11 blood cultures (2) no growth today 12/11 cultures from the OR : group a strep, adkins-S Subjective: pain associated with 4th finger Objective: Vital Signs Temp Pulse Resp BP Pulse Ox 37.0 C 64 14 127/67 H 94 12/18/17 08:00 12/18/17 08:00 12/18/17 08:00 12/18/17 09:24 12/18/17 08:00 Microbiology 12/11/17 12:26 Gram Stain - Final Hand - Swab Laboratory Results 12/17/17 04:35 12/15/17 03:30 12/17/17 12/18/17 12/19/17 05:59 05:59 05:59 Intake Total 300 300 150 Balance 300 300 150 C-Reactive Protein 74.5 mg/L (<10.0) H 12/14/17 04:26 General Appearance: alert, no apparent distress Respiratory: No accessory muscle use Extremities:generalized swelling L hand improved today w continued increased wrinkling of skin suggestive of improvement, LEFT purplish erythema dorsum of hand, continued gradual improvement, incision on 4th finger left ok, sloughing of skin at base of finger with underlying open wound, adjacent macerated skin, flexion limited but stable Skin: No rash Neuro/Psych: alert, normal mood/affect, oriented x 3 - Time Spent With Patient Time Spent with Patient: greater than 35 minutes (care coordinated and patient examined w dr liang) Time Spent with Patient: Greater than 35 minutes spent on this patients care, greater than 50% of time spent counseling, educating, and coordinating care regarding the above mentioned plan. ICD10 Worksheet Patient Problems: Problems Problem Status Onset Atrial fibrillation Acute CAD (coronary artery disease) Acute
[2017-12-18] MEDS: ACETAMINOPHEN 325 MG TAB PO PRN ×2 (10:41→22:10)
--- NOTE | 2017-12-18 11:30 | HOSPPROG ---
Hospitalist Progress Note Assessment/Plan: 67-year-old male presents with sepsis secondary to tenosynovitis and abscess mediated by group a strep # Flexor tenosynovitis and abscess- Located along the left 4th digit, POD # 7 status post washout by Dr. [facility] a strep on wound culture- wound visualized today with Dr. Soto - again slightly improved- less swelling - cont ceftriaxone will likely need to additional weeks of IV antibiotics - wound consult for recommendations on outpatient care of this wound - cont inpatient care # Sepsis-(fever, tachycardia, tachypnea, severe leukocytosis) source is tenosynovitis and abscess WBC 31-> 9 Oxygen saturations 96% on room air -resolved # Permanent atrial fibrillation-Currently on Tikosyn and systemic anticoagulation - continue home meds # Coronary artery disease. Chronic, history of cardiac stents, continue home medications and restarted Plavix # Chronic diastolic congestive heart failure. No evidence of acute exacerbation , continue diuretics # Acute metabolic acidosis. Secondary to lactic acid in the setting of sepsis, cleared with treatment of sepsis Diet. Cardiac Prophylaxis. High risk patient, currently on Xarelto Code. Full Disposition> 2MN - continues to require close monitoring and IV abx I have discussed the case with Dr. Soto- will have Wound Care consult for informed recommendations on wound management upon DC will work on arranging IV antibiotics today for potential discharge tomorrow Subjective: Wound remains very painful in the raw sloughed area Objective: Vital Signs Temp Pulse Resp BP Pulse Ox 37.0 C 64 14 127/67 H 94 12/18/17 08:00 12/18/17 08:00 12/18/17 08:00 12/18/17 09:24 12/18/17 08:00 Microbiology 12/11/17 12:26 Gram Stain - Final Hand - Swab Laboratory Results 12/17/17 04:35 12/15/17 03:30 12/17/17 12/18/17 12/19/17 05:59 05:59 05:59 Intake Total 300 300 150 Balance 300 300 150 PT 19.1 SEC (12.0-15.0) H 12/11/17 10:06 INR 1.59 (0.83-1.16) H 12/11/17 10:06 - Physical Exam Constitutional: appears nourished Eyes: anicteric sclera Ears, Nose, Mouth, Throat: moist mucous membranes Cardiovascular: regular rate and rhythym Respiratory: no respiratory distress Gastrointestinal: normoactive bowel sounds Genitourinary: no bladder fullness Skin: warm, other (Decreased edema of the left hand) Musculoskeletal: No asymmetric calves Neurologic: AAOx3 Psychiatric: interacting appropriately Lymph, Heme, Immunologic: no cervical LAD ICD10 Worksheet Patient Problems: Problems Problem Status Onset Atrial fibrillation Acute CAD (coronary artery disease) Acute
--- NOTE | 2017-12-18 13:06 | WOCRNPDOC ---
WOCRN Advanced Assessment Note - Skin Integrity Problem, Advanced Assess Left Fourth Finger Surgical Wound/Incision Dressing Type: Adaptic Touch, Kerlix Dressing Description: Clean/Dry, Intact Closure Description: Sutures, Approximated Exudate Amount: Minimal Exudate Color: Red Exudate Characteristic(s): Bloody Integumentary Issue Intervention: Dressing Removed Barbara Wound Tissue: Swollen Barbara Wound Swelling: Moderate Wound Bed Color: Red Wound Bed Constitution: Granulation Tissue Wound Edges: Well Defined Skin Integrity Problem Comment: Patient with surgical wound to his left fourth finger, extending into the palm of left hand. Surgical wound closed and approximated with sutures. Just at the base of the 4th finger, to either side of the incision, there are full thickness wounds, approx [id number] that are moist and bloody. Wound care was sought to see if we could formulate plans for the wound at home. Patient and staff toxicologistYANA Gautam inform me that even non-adherent layers are sticking to this wound and cause pain with removal. Will try mepilex transfer in contact with wound bed to see if patient tolerates removal better than adaptic touch. New wound care orders written. Wound care will round again later this week to see how dressing changes are tolerated.
--- NOTE | 2017-12-18 14:50 | ASMTCMCOM ---
CM Note CM Note Notes: Reviewed chart, spoke w/ Dr. Soto and YANA Gautam regarding discharge plan of care, pt's progress. Per Dr. Soto, pt will need IV antibiotics until 12/30/17. Met with pt and his to discuss options (home care with IV infusion company vs outpt infusion center and wound care clinic vs providing wound care). Discussed homebound status, pt verbalized understanding. Address and phone number verified. Pt open to all options, but would prefer the most affordable plan. The pt mentioned the outpt infusion center might be nice because "it would give him a chance to get out of the house each day." Pt offered list of home care and infusion companies, pt deferred to CM for assistance with selection. Call placed to [facility], spoke with Jane Diaz. Per Jane, [facility] is a preferred, in-network insurance provider for them. Jane suspects home care/home infusion will be cheaper than outpt therapy, depending on the pt's deductible and co-insurance requirements. Jane to run benefits on Tuesday12/19/17 and will update CM as soon as possible. Jane suggested [facility] for pt. Referrals faxed to [facility] and [facility]. Updates provided to YANA Gautam, pt and pt's . CM will cont to follow and will update pt/pt's on Tuesday once [id number] cost information has been obtained. Current discharge plan: Home with infusion services and wound care (agencies and plan to be determined) Date Signed: 12/18/2017 02:48 PM Electronically Signed By:Radha Lira RN
[2017-12-18 15:14] VITALS: RESP 16
[2017-12-18] MEDS: RIVAROXABAN 20 MG TAB PO SCH (17:37)
[2017-12-18] MEDS: CHOLECALCIFEROL VIT D3 2,000 UNITS TAB/CAP PO SCH (22:11)
[2017-12-18] MEDS: MELATONIN 3 MG TAB PO SCH (22:11)
[2017-12-18] MEDS: MULTIVITAMINS 1 EACH TAB PO SCH (22:11)
[2017-12-18] MEDS: PSYLLIUM METAMUCIL 1 PKT PO SCH (22:11)
[2017-12-19 08:12] VITALS: BP 123/75; PULSE 66; TEMP 98.1; O2SAT 92
[2017-12-19] MEDS: amLODIPine BESYLATE 5 MG TAB PO SCH (09:55)
[2017-12-19] MEDS: VITAMIN B COMPLEX 1 EA CAP/TAB PO SCH (09:55)
[2017-12-19] MEDS: ENALAPRIL MALEATE 10 MG TAB PO SCH (09:55)
[2017-12-19] MEDS: DOFETILIDE 0.25 MG CAP PO SCH (09:56)
[2017-12-19] MEDS: cefTRIAXone 2 GM in STERILE WATER INJ 20 ML IV SCH (09:56)
[2017-12-19] MEDS: CLOPIDOGREL BISULFATE 75 MG TAB PO SCH (09:56)
[2017-12-19] MEDS: ATORVASTATIN CALCIUM 40 MG TAB PO SCH (09:56)
--- NOTE | 2017-12-19 11:01 | PDIAF ---
- Diagnosis Diagnosis: LUCY L hand tenosynovitis Code Status: Full Code - Medication Management Discharge Medications: Medications to Continue on Transfer Enalapril Maleate [Vasotec 10 MG (*)] 5 mg PO BID 12/13/13 [Last Taken 07/09/14] Melatonin [Melatonin 3 MG (*)] 3 mg PO HS 12/13/13 [Last Taken 07/08/14] Multivitamins [Multivitamin (*)] 1 tab PO HS 12/13/13 [Last Taken 07/08/14] Rivaroxaban [Xarelto] 20 mg PO DAILY@1800 12/13/13 [Last Taken 12/10/17] Vitamin B Complex [B Complex] 1 each PO DAILY 12/13/13 [Last Taken 12/13/13] Clopidogrel Bisulfate [Clopidogrel] 75 mg PO DAILY 07/09/14 [Last Taken 12/10/17 ] Herbals/Supplements -Info Only 1 ea PO DAILY 07/09/14 [Last Taken Unknown] Psyllium Husk (with Sugar) [Metamucil Packet] 1 each PO HS 07/09/14 [Last Taken 07/08/14] Dofetilide [Tikosyn 0.25 MG (*)] 0.25 mg PO BID #0 cap 07/11/14 [Last Taken ] Atorvastatin Calcium [Lipitor 40 mg (*)] 40 mg PO DAILY 12/11/17 [Last Taken ] Cholecalciferol Vit D3 [Vitamin D3 2000 units tab (OTC)] 2,000 units PO HS 12/11 [Last Taken Unknown] amLODIPine BESYLATE [Norvasc 5 mg (*)] 5 mg PO DAILY 12/11/17 [Last Taken ] cefTRIAXone [Rocephin] 2 gm IV DAILY vial 12/19/17 [Last Taken Unknown] Roof Bolter Antibiotics: ceftriaxone 2gm IV daily Roof [place]ter Antibiotic Stop Date: 12/30/17 Discharge Medications: Refer to the Discharge Home Medication list for PRN reason. PICC Care - Routine: Yes - Orders Services needed: Home Care, Registered Nurse Home Care Face to Face: I certify that this patient was under my care and that I had the required [id number] encounter meeting the encounter requirements on the discharge day. My findings support the fact that the patient is homebound as defined in Home Care Face to Face Continued: [facility] Chapter 7 Medicare Benefits Manual 30.1.1 , The condition of the patient is such that there exists a normal inability to leave home and consequently, leaving home would require a considerable and taxing effort. 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 Wound care. Change dressings to left 4th finger daily and as needed. 1. Clean gently with NS and gauze. 2. Wound gel to wound bed. 3. Cut a strip of Mepilex transfer (or similar non-adherent foam), about an inch in width, and wrap gently around base of 4th finger. 4. Wrap entire area with duane and secure with tape. Alida Douglass RN, Wound Care Team - Labs/Radiology CBC w/diff Date: 12/20/17 (weekly Tuesday) CMP Date: 12/20/17 (weekly Tuesday) CRP Date: 12/20/17 (weekly Tuesday) - Follow Up Care Current Providers and Referrals: Shayne Fields MD [Primary Care Provider] - As per Instructions Kayce Soto MD [Medical Doctor] - 12/23/17 10:30 am
--- NOTE | 2017-12-19 11:57 | ASMTLACE ---
LACE Length of stay for Answers: 7-13 days current admission Acuity / Level of Answers: Yes Care: Did the patient have an inpatient admission? Comorbidities - select Answers: Other Notes: HTN, Afib all that apply # of Emergency department Answers: 1-2 visits in the last 6 months Score: 10 Date Signed: 12/19/2017 11:57 AM Electronically Signed By:TAMMIE Canales
[2017-12-19] MEDS: ACETAMINOPHEN 325 MG TAB PO PRN (12:20)
--- NOTE | 2017-12-19 14:34 | GDS ---
[f rep st] DISCHARGE SUMMARY DISCHARGE DIAGNOSES: Include: 1. Acute flexor tenosynovitis and abscess of the left 4th digit secondary to Streptococcus pyogenes, group A. 2. Sepsis secondary to tenosynovitis, resolved. 3. Permanent atrial fibrillation. 4. Coronary artery disease. 5. Chronic diastolic heart failure. 6. Acute metabolic acidosis secondary to sepsis, resolved. HISTORY OF PRESENT ILLNESS: A 67-year-old male who presented on 12/11/2017, with complaints of hand swelling. For details of the patient's initial presentation, please see the History and Physical twyla ed 12/11/2017. CONSULTATIVE SERVICES: 1. Infectious Disease. 2. Orthopedic Surgery, Dr. Kaufman. PROCEDURES: On 12/11/2017, patient was taken for incision and drainage of the abscess of his left ri ng finger. HOSPITAL COURSE BY ISSUE: 1. Acute tenosynovitis of the left 4th digit with abscess. Patient was I and D'd surgically upon ar rival and placed on IV antibiotics. Culture data isolated Streptococcus pyogenes A. patient was ini tially treated with vancomycin, was trialed again cephalosporins with his penicillin allergy and ulti mately transitioned to IV ceftriaxone. He was kept in the hospital with daily wound checks until , when he is being discharged with daily infusions of ceftriaxone and outpatient home wound ca re. Patient will follow closely with outpatient Infectious Disease, as well as Dr. Kaufman the orthope dic surgeon. 2. Sepsis secondary to hand infection. Patient's sepsis physiology did resolve during his hospital stay. 3. Acute leukocytosis secondary to sepsis and tenosynovitis. Patient's white count improved from 31 ,000 to 6 on the day of disposition. PENDING STUDIES: At the time of this dictation are none. FOLLOWUP APPOINTMENTS: Include in the next week's time with Dr. Soto from Infectious Disease, as w ell as outpatient with Dr. Kaufman, Orthopedic Surgery. I spent greater than 30 minutes in the planning and coordination of this discharge. /[id number]/MODL
--- NOTE | 2017-12-19 14:46 | PCMIDPN ---
Assessment/Plan: Assessment: Left 4th finger and hand soft tissue necrotizing infection secondary to group a Streptococcus. Patient is tolerating ceftriaxone without issue. The clinical exam of his hand and finger is significantly improved. Decreased redness and swelling. Plan to continue the vancomycin and observe further. Plan: 1. Patient to discharge home today on IV ceftriaxone through 12/30/2017. 2. Follow up in clinic in 1 week time. Subjective: Patient is sitting in his chair in his hospital room. No significant events overnight. Hand is getting smaller every day and feels better every day according to the patient. No fevers or chills. Objective: Ceftriaxone # 4 Vital Signs Temp Pulse Resp BP Pulse Ox 36.7 C 66 16 123/75 H 92 12/19/17 08:00 12/19/17 08:00 12/19/17 08:00 12/19/17 08:00 12/19/17 08:00 Microbiology 12/11/17 12:26 Gram Stain - Final Hand - Swab Anaerobic Culture - Final Streptococcus Pyogenes Grp A Laboratory Results 12/19/17 06:52 12/15/17 03:30 12/18/17 12/19/17 12/20/17 05:59 05:59 05:59 Intake Total 300 700 Balance 300 700 C-Reactive Protein 74.5 mg/L (<10.0) H 12/14/17 04:26 - Physical Exam General Appearance: WD/WN, alert, no apparent distress, non-toxic Respiratory: lungs clear, normal breath sounds, No respiratory distress Cardiac/Chest: regular rate, rhythm, No tachycardia Extremities: non-tender, swelling (Mild left hand), erythema (Mild left hand), No normal inspection, No inflammation ICD10 Worksheet Patient Problems: Problems Problem Status Onset Atrial fibrillation Acute CAD (coronary artery disease) Acute
--- NOTE | 2017-12-19 15:37 | ASDISCHSUM ---
Discharge Information Plan Status:IV ABX/Infusion Medically Cleared to Leave:12/19/2017 Discharge Date:12/19/2017 01:15 PM D/C Disposition:Home Health Service [facility] D/C Disposition:Home, Routine, Self-Care Projected Discharge Date:12/19/2017 11:00 AM Transportation at D/C: Discharge Delay Reason: Follow-Up Date:12/19/2017 11:00 AM Discharge Slot: Final Diagnosis: Placement Information Referral Type:Home Infusion Referral ID:[id number] Provider Name:[facility] Address 1:[address] Address 2: City:[place] Selection Factors: State:[place] Referral Type:*Home Health Care Services Referral ID:[id number] Provider Name:[facility] Address 1:[address] Address 2: City:[place] Selection Factors: State:[place] Patient Contact Information Contact Name:JOHNNY Relationship: Address:[address] City:[place] Alternate Phone: [facility]/Zip Code:[place] [address] Email: Financial Information Financial Class:[employer] [facility] Primary Plan Number:[id number] Secondary Plan Desc: Secondary Plan Number: Assessment Information [facility] Initial CM Assessment Living Arrangements What is your living Answers: With Spouse arrangement? Who do you live with? Type Of Residence What kind of residence do Answers: House you live in? Discharge Plan Comments Coordination Status Comments Notes: Patient is a 67yo male who was admitted for left hand Tenosynovitis, cellulitis, and possible sepsis. OT and wound care have been ordered. Patient required emergent irrigation and debridement in the operating room and he will be on IV abx. Cultures will be obtained intraoperatively. Patient's Elizabeth has been at bedside. 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 He lives with his in a house independently. D/C plan TBD. CM will follow. Date Signed: 12/12/2017 11:44 AM Electronically Signed By:Hortencia Rausch LCSW [facility] CM Progress Note CM Note CM Note Notes: OT previously ordered; PT ordered as well; awaiting evals. Pt currently on IV abx; ID to consult. CM will continue to follow. Date Signed: 12/13/2017 12:25 PM Electronically Signed By:Anh Womack RN [facility] CM Progress Note CM Note CM Note Notes: Spoke w/YANA, pt will stay one more night and likely dc home on oral abx. CM available for any changes. DC Plan: Independent Date Signed: 12/15/2017 02:20 PM Electronically Signed By:Sandra Mariee RN [facility] CM Progress Note CM Note CM Note Notes: Reviewed chart, spoke w/ Dr. Soto and YANA Gautam regarding discharge plan of care, pt's progress. Per Dr. Soto, pt will need IV antibiotics until 12/30/17. Met with pt and his to discuss options (home care with IV infusion company vs outpt infusion center and wound care clinic vs providing wound care). Discussed homebound status, pt verbalized understanding. Address and phone number verified. Pt open to all options, but would prefer the most affordable plan. The pt mentioned the outpt infusion center might be nice because "it would give him a chance to get out of the house each day." Pt offered list of home care and infusion companies, pt deferred to CM for assistance with selection. Call placed to [facility], spoke with Jane Diaz. Per Jane, [employer] is a preferred, in-network insurance provider for them. Jane suspects home care/home infusion will be cheaper than outpt therapy, depending on the pt's deductible and co-insurance requirements. Jane to run benefits on Tuesday12/19/17 and will update CM as soon as possible. Jane suggested [facility] for pt. Referrals faxed to [facility] and [facility]. Updates provided to YANA Gautam, pt and pt's . CM will cont to follow and will update pt/pt's on Tuesday once [id number] cost information has been obtained. Current discharge plan: Home with infusion services and wound care (agencies and plan to be determined) Date Signed: 12/18/2017 02:48 PM Electronically Signed By:Radha Lira RN LACE LACE Length of stay for Answers: 7-13 days current admission Acuity / Level of Answers: Yes Care: Did the patient have an inpatient admission? Comorbidities - select Answers: Other Notes: HTN, Afib all that apply # of Emergency department Answers: 1-2 visits in the last 6 months Score: 10 Date Signed: 12/19/2017 11:57 AM Electronically Signed By:TAMMIE Canales Case Management Discharge Plan Note Case Management Discharge Discharge Order Complete? Answers: Yes Patient to Obtain Answers: via Family Medications Transportation Arranged Answers: Family/Friends EMTALA Complete Answers: No Case Management Transport Answers: No Form Complete Faxed Final Orders Answers: Yes Agency/Facility Transfer Answers: Yes Report Printed & Faxed to Receiving Agency Family Notified Answers: Yes Discharge Comments Notes: CM spoke w/ Dr. Steward and YANA Rowe. CM met w/ pt and to discuss d/c POC. CM provided pt w/ phone number to [facility]. CM confirmed pts phone number. Pt provided his cellphone number (P#: [phone]). CM provided this info to [facility]. DC orders sent to [facility]. CM provided YANA Rowe w/ phone number to give report. CM available for changes. Plan: [facility] and CORKY, RN Date Signed: 12/19/2017 12:13 PM Electronically Signed By:TAMMIE Canales Intervention Information
== END 2017-12-19 13:15 | disposition home or self-care (01) | DRG 854 ==
LOC: OBSVTOIN 11:19 → F3E 13:51
PROVIDERS: ADMIT Family Medicine; ATTEND Family Medicine
PROC: 0J9K00Z Drainage of Left Hand Subcutaneous Tissue and Fascia with Drainage Device, Open Approach (ICD-10-PCS; principal; 2017-12-11 12:00)
PROC: 0JDK0ZZ Extraction of Left Hand Subcutaneous Tissue and Fascia, Open Approach (ICD-10-PCS; principal; 2017-12-11 12:00)
PROC: 02HV33Z Insertion of Infusion Device into Superior Vena Cava, Percutaneous Approach (ICD-10-PCS; 2017-12-14)
DX: A40.0 Sepsis due to streptococcus, group A (principal); M65.142 Other infective (teno)synovitis, left hand; L02.512 Cutaneous abscess of left hand; E87.2 Acidosis; I48.2 Chronic atrial fibrillation; I50.22 Chronic systolic (congestive) heart failure; I25.10 Atherosclerotic heart disease of native coronary artery without angina pectoris; I10 Essential (primary) hypertension; Z79.01 Long term (current) use of anticoagulants; Z95.5 Presence of coronary angioplasty implant and graft; Z88.1 Allergy status to other antibiotic agents
CPT/HCPCS: 97165-GO; C1751; J0690; J0696; J1100; J2001; J2250; J2405; J2704; J3010; J3370

== ENCOUNTER 2017-12-25 17:53 | Emergency (ER) | payer OTHER ==
[2017-12-25 17:58] VITALS: RESP 18
[2017-12-25] MEDS ORDERED: SILVER NITRATE APPLICATOR 1 APPL TP ONE ×2 (18:07→18:30)
[2017-12-25] MEDS ORDERED: OXYMETAZOLINE 30 ML NASAL SPRAY ONE (18:07)
[2017-12-25] MEDS ORDERED: OXYMETAZOLINE 30 ML NASAL SPRAY EACHNARE ONE (18:30)
[2017-12-25] MEDS ORDERED: LIDOCAINE 2% JELLY 5 ML TUBE ONE (18:37)
--- NOTE | 2017-12-25 19:00 | EDPHY ---
H & P Time Seen by Provider: 12/25/17 18:02 HPI/ROS: CHIEF COMPLAINT: Epistaxis HISTORY OF PRESENT ILLNESS: 67-year-old male with atrial fibrillation (on Pradaxa) presents with a nosebleed. Onset of epistaxis this morning at 9:00 a.m.. The bleeding has been intermittent since then and not relieved with cold compresses or lying down. The epistaxis is currently stopped with a nasal clip. No associated dizziness or weakness. Recent admission for cellulitis of the hand and now receiving IV antibiotics at home. No other change in medications. REVIEW OF SYSTEMS: Constitutional: No fever, no chills Eyes: No visual changes ENT: No sore throat Respiratory: No cough, no shortness of breath Cardiac: No chest pain Gastrointestinal: No nausea, no vomiting, no abdominal pain Genitourinary: No hematuria, no dysuria Musculoskeletal: No leg pain or swelling Skin: No rash Neurological: No headache, no weakness Psychiatric: No depression Past Medical/Surgical History: Hypertension CAD Atrial fibrillation, on Pradaxa Social History: Smoking Status: Never smoked Physical Exam: General Appearance: Alert, pleasant Eyes: Pupils equal and round, no conjunctival pallor ENT, Mouth: Nose-left anterior nares-prominent vessel, no active bleeding, no blood in the posterior pharynx, Mucous membranes moist Neck: Normal inspection Respiratory: Lungs are clear to auscultation Cardiovascular: Irregularly irregular rate rhythm Gastrointestinal: Abdomen is soft and nontender Neurological: A&O, nonfocal, normal gait Skin: Warm and dry Extremities: Normal inspection Psychiatric: Mood and affect normal Constitutional: Initial Vital Signs Temperature (C) 36.8 C 12/25/17 17:55 Heart Rate 66 12/25/17 17:55 Respiratory Rate 18 12/25/17 17:55 Blood Pressure 173/90 H 12/25/17 17:55 O2 Sat (%) 95 12/25/17 17:55 O2 Delivery Mode Room Air Allergies/Adverse Reactions: Penicillins Allergy (Intermediate, Verified 12/25/17 17:54) hives/swelling of face and throat Home Medications: Medication Instructions Recorded Enalapril Maleate [Vasotec 10 MG 5 mg PO BID 12/13/13 (*)] Melatonin [Melatonin 3 MG (*)] 3 mg PO HS 12/13/13 Multivitamins [Multivitamin (*)] 1 tab PO HS 12/13/13 Rivaroxaban [Xarelto] 20 mg PO DAILY@1800 12/13/13 Vitamin B Complex [B Complex] 1 each PO DAILY 12/13/13 Clopidogrel Bisulfate [Clopidogrel] 75 mg PO DAILY 07/09/14 Herbals/Supplements -Info Only 1 ea PO DAILY 07/09/14 Psyllium Husk (with Sugar) 1 each PO HS 07/09/14 [Metamucil Packet] Dofetilide [Tikosyn 0.25 MG (*)] 0.25 mg PO BID #0 cap 07/11/14 Atorvastatin Calcium [Lipitor 40 40 mg PO DAILY 12/11/17 mg (*)] Cholecalciferol Vit D3 [Vitamin D3 2,000 units PO HS 12/11/17 2000 units tab (OTC)] amLODIPine BESYLATE [Norvasc 5 mg 5 mg PO DAILY 12/11/17 (*)] cefTRIAXone [Rocephin] 2 gm IV DAILY vial 12/19/17 Medical Decision Making ED Course/Re-evaluation: Headlamp and nasal speculum used to visualize anterior septum. No active bleeding. Prominent vessel visualized, most likely the site of bleeding. Lidocaine placed left nares. Silver nitrate cautery to prominent anterior vessel. No active bleeding throughout ED stay. Differential Diagnosis: includes though not limited to posterior epistaxis, severe anemia, hypotension - Data Points Medications Given: Discontinued Medications Oxymetazoline HCl (Afrin Nasal [place]) 2 sprays EACHNARE EDNOW ONE Stop: 12/25/17 18:31 Last Admin: 12/25/17 18:31 Dose: 2 spray Silver Nitrate/Potassium Nitrate (Silver Nitrate Applicator) 1 each TP EDNOW ONE Stop: 12/25/17 18:31 Last Admin: 12/25/17 18:31 Dose: 1 each Departure - Departure Disposition: Home, Routine, Self-Care Clinical Impression: Acute anterior epistaxis Condition: Good Instructions: Nosebleed (ED) Additional Instructions: If the nosebleed recurs, place the nasal clip. Keep the clip in place for 15 min. If you continue to have bleeding, return to the emergency department. Referrals: Shayne Fields MD [Primary Care Provider] - As per Instructions Lucio Kwong MD [Medical Doctor] - As per Instructions
[2017-12-25 19:26] VITALS: BP 149/91; PULSE 62; TEMP 98.6; O2SAT 96
== END 2017-12-25 19:31 | disposition home or self-care (01) ==
PROC: 095KXZZ Destruction of Nasal Mucosa and Soft Tissue, External Approach (ICD-10-PCS; principal; 2017-12-25)
DX: R04.0 Epistaxis (principal); I10 Essential (primary) hypertension; I25.10 Atherosclerotic heart disease of native coronary artery without angina pectoris; Z79.01 Long term (current) use of anticoagulants

== ENCOUNTER 2018-01-02 07:55 | Emergency (ER) | payer OTHER ==
[2018-01-02] MEDS ORDERED: OXYMETAZOLINE 30 ML NASAL SPRAY ONE (08:07)
[2018-01-02] MEDS ORDERED: SILVER NITRATE APPLICATOR 1 APPL TP ONE ×2 (08:07→08:17)
--- NOTE | 2018-01-02 08:16 | EDPHY ---
H & P Time Seen by Provider: 01/02/18 08:15 HPI/ROS: Chief complaint. Nose bleed HPI. Patient is 67-year-old male on Pradaxa for atrial fibrillation and here with nosebleed. Nosebleed began this morning. Denies trauma. No recent URI symptoms. Patient was in our emergency department for nose bleed on December 25 but was the left nostril. Today is the right nostril. He was unable to get the bleeding controlled with pressure at home. No chest discomfort or shortness of breath. ROS Constitutional. no fever/chills, no weakness Eyes. no problems with vision ENT. Nose bleed Cardiovascular. no chest pain Respiratory. no shortness of breath, no cough Abdominal. no abdominal pain, no nausea/vomiting, no diarrhea . no problems urinating MS. no calf pain/swelling, no neck/back pain, no joint pain Skin. no rash Lymph. no swollen glands Neuro. no headache, no dizziness, no difficulty walking or with speech Past Medical/Surgical History: Hypertension, atrial fibrillation on anticoagulation, cardiac stent Social History: , nonsmoker, no alcohol Smoking Status: Never smoked Physical Exam: General Appearance: Alert pleasant well-developed male mild distress vital signs stable Eyes: Pupils equal and round no pallor or injection. ENT, bleeding from the right nostril. Some blood in the posterior pharynx. No bleeding from the left nostril. Respiratory: There are no retractions, lungs are clear to auscultation. Cardiovascular: Regular rate and rhythm. Gastrointestinal: Abdomen is soft and nontender, no masses, bowel sounds normal. Neurological: Awake and alert, sensory and motor exams grossly normal. Skin: Warm and dry, no rashes. Musculoskeletal: Neck is supple nontender. Extremities symmetrical, full range of motion. Psychiatric: Patient is oriented X 3, there is no agitation. Constitutional: Initial Vital Signs Temperature (C) 36.7 C 01/02/18 07:58 Heart Rate 86 01/02/18 07:58 Respiratory Rate 20 01/02/18 07:58 Blood Pressure 153/88 H 01/02/18 07:58 O2 Sat (%) 92 01/02/18 07:58 O2 Delivery Mode Room Air Allergies/Adverse Reactions: Penicillins Allergy (Intermediate, Verified 01/02/18 07:58) hives/swelling of face and throat Home Medications: Medication Instructions Recorded Enalapril Maleate [Vasotec 10 MG 5 mg PO BID 12/13/13 (*)] Melatonin [Melatonin 3 MG (*)] 3 mg PO HS 12/13/13 Multivitamins [Multivitamin (*)] 1 tab PO HS 12/13/13 Rivaroxaban [Xarelto] 20 mg PO DAILY@1800 12/13/13 Vitamin B Complex [B Complex] 1 each PO DAILY 12/13/13 Clopidogrel Bisulfate [Clopidogrel] 75 mg PO DAILY 07/09/14 Herbals/Supplements -Info Only 1 ea PO DAILY 07/09/14 Psyllium Husk (with Sugar) 1 each PO HS 07/09/14 [Metamucil Packet] Dofetilide [Tikosyn 0.25 MG (*)] 0.25 mg PO BID #0 cap 07/11/14 Atorvastatin Calcium [Lipitor 40 40 mg PO DAILY 12/11/17 mg (*)] Cholecalciferol Vit D3 [Vitamin D3 2,000 units PO HS 12/11/17 2000 units tab (OTC)] amLODIPine BESYLATE [Norvasc 5 mg 5 mg PO DAILY 12/11/17 (*)] cefTRIAXone [Rocephin] 2 gm IV DAILY vial 12/19/17 Medical Decision Making Procedures: Clots were cleared from the patient's nose by gentle but firm blow. Afrin nose spray is sprayed into both nostrils. Inspection reveals a Jaylyn bleeding on the medial septum anteriorly. It is cauterized. Subsequently cotton ball soaked in TXA solution is placed in both nostrils. ED Course/Re-evaluation: Re-evaluation at 9:15 a.m.. The cotton balls are removed. Inspection shows no further bleeding. Patient and I discussed treatment plan including criteria for return importance of follow-up and further evaluation. He expresses understanding and agreement Differential Diagnosis: I considered anterior versus posterior epistaxis. It appears that patient was bleeding on the septum. It has been cauterized and treated with DEXA. There is no further bleeding. Patient is on blood thinners for atrial fibrillation. - Data Points Medications Given: Discontinued Medications Oxymetazoline HCl (Afrin Nasal [place]) 2 sprays EACHNARE EDNOW ONE Stop: 01/02/18 08:18 Last Admin: 01/02/18 08:30 Dose: 2 sprays Silver Nitrate/Potassium Nitrate (Silver Nitrate Applicator) 1 each TP EDNOW ONE Stop: 01/02/18 08:18 Last Admin: 01/02/18 08:34 Dose: Not Given Tranexamic Acid (Cyklokapron) 500 mg TP EDNOW ONE Stop: 01/02/18 08:18 Last Admin: 01/02/18 08:31 Dose: 500 mg Departure - Departure Disposition: Home, Routine, Self-Care Clinical Impression: Acute anterior epistaxis Condition: Good Instructions: Nosebleed (ED) Additional Instructions: Antibiotic an appointment applied to the middle septum part of your nose twice daily next 2-3 days. Caution with bending over for example to put her shoes on. Return for further bleeding. Follow up with ENT. Referrals: Shayne Fields MD [Primary Care Provider] - As per Instructions Melinda Horn MD [Medical Doctor] - 2-3 days, call for appt.
[2018-01-02] MEDS ORDERED: TRANEXAMIC ACID 1,000 MG/10 ML VIAL TP ONE (08:17)
[2018-01-02] MEDS ORDERED: OXYMETAZOLINE 30 ML NASAL SPRAY EACHNARE ONE (08:17)
[2018-01-02 09:38] VITALS: BP 138/92
== END 2018-01-02 09:37 | disposition home or self-care (01) ==
PROC: 2Y41X5Z Packing of Nasal Region using Packing Material (ICD-10-PCS; principal; 2018-01-02)
DX: R04.0 Epistaxis (principal); I10 Essential (primary) hypertension; Z95.5 Presence of coronary angioplasty implant and graft